=== PATIENT | female | born 1965 | race Caucasian/White ===

== ENCOUNTER 2018-09-28 22:14 | Emergency (ER) | payer MEDICARE ==
[~2018-09-28] VITALS: Ht 167.6 cm; Wt 86.2 kg
[2018-09-28] MEDS ORDERED: TEGRETOL XR100 MG PO (22:31)
[2018-09-28] MEDS ORDERED: LAMICTAL150 MG PO ×2 (22:31→23:23)
[2018-09-28] MEDS ORDERED: ATIVAN1 MG PO (22:32)
[2018-09-28] MEDS ORDERED: LANTUS100 UNITS/ SUB-Q (22:36)
[2018-09-28] MEDS ORDERED: TOPROL XL25 MG PO (22:38)
[2018-09-28] MEDS ORDERED: GLUCOPHAGE500 MG PO (22:39)
[2018-09-28] MEDS ORDERED: TEGRETOL200 MG PO (23:18)
[2018-09-28] MEDS ORDERED: OXCARBAZEPINE150 MG PO ×2 (23:20→23:23)
== END 2018-09-28 23:48 | disposition home or self-care (01) ==
LOC: ED 22:14
DX: G40.909 Epilepsy, unspecified, not intractable, without status epilepticus (principal); E11.9 Type 2 diabetes mellitus without complications; Z87.891 Personal history of nicotine dependence; Z90.710 Acquired absence of both cervix and uterus; Z88.2 Allergy status to sulfonamides; Z79.899 Other long term (current) drug therapy; Z79.4 Long term (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 of insulin
CPT/HCPCS: 99283

== ENCOUNTER 2020-08-07 10:34 | Emergency (ER) | payer MEDICARE ==
[~2020-08-07] VITALS: Ht 167.6 cm; Wt 90.7 kg
[~2020-08-07 10:34] MED LIST: ATIVAN1 MG PO; GLUCOPHAGE500 MG PO; LAMICTAL150 MG PO; LANTUS100 UNITS/ SUB-Q; OXCARBAZEPINE150 MG PO; TEGRETOL XR100 MG PO; TEGRETOL200 MG PO; TOPROL XL25 MG PO
--- OUTSIDE RECORDS SUMMARY | 2020-08-07 10:36 | XMS ---
PreManage Notification: SELVIN YAO Security Hammer Repairer Events No recent Security Events currently on file CRITERIA MET - [facility] CARE PROVIDERS NERI ZURITA Physician .Net Programmer: Medical 11/28/2015-Current PHONE: Unknown ALEX HOWE Physician .Net Programmer: Medical [facility]ONE: [phone] Elvira has no Care Guidelines for this patient. E.D. VISIT COUNT (12 MO.) 1 [place]IRAN [place] TOTAL 1 NOTE: Visits indicate total known visits. ED/UCC VISIT TRACKING (12 MO.) 08/07/2020 10:35 [place] [place] TYPE: Emergency COMPLAINT: - CAT BITE INPATIENT VISIT TRACKING (12 MO.) No inpatient visits to display in this time frame [email or web address]
[2020-08-07] MEDS ORDERED: METOPROLOL TAR100 MG PO (11:15)
[2020-08-07] MEDS ORDERED: FARXIGA5 MG PO (11:16)
[2020-08-07] MEDS ORDERED: LAMOTRIGINE300 MG PO (11:17)
[2020-08-07] MEDS ORDERED: CLOPIDOGREL75 MG PO (11:18)
[2020-08-07] MEDS ORDERED: METFORMIN HCL1000 MG PO (11:18)
[2020-08-07] MEDS ORDERED: ATORVASTATIN CA80 MG PO (11:19)
[2020-08-07] MEDS ORDERED: CLOBAZAM20 MG PO (11:19)
[2020-08-07] MEDS ORDERED: TRULICITY1.5 MG/0.5 SUB-Q (11:20)
[2020-08-07] MEDS ORDERED: VITAMIN D31250 MC1 PO (11:20)
[2020-08-07] MEDS ORDERED: CEFDINIR300 MG PO (11:32)
[2020-08-07] MEDS ORDERED: FLAGYL500 MG PO (11:32)
== END 2020-08-07 11:45 | disposition home or self-care (01) ==
LOC: ED 10:34
DX: S61.552A Open bite of left wrist, initial encounter (principal); L02.512 Cutaneous abscess of left hand; W55.01XA Bitten by cat, initial encounter; G40.909 Epilepsy, unspecified, not intractable, without status epilepticus; E11.9 Type 2 diabetes mellitus without complications; Z87.891 Personal history of nicotine dependence; Z88.2 Allergy status to sulfonamides; Z79.899 Other long term (current) drug therapy; Z79.4 Long term (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 of insulin
CPT/HCPCS: 10060; 99283-25

== ENCOUNTER 2020-09-21 00:13 | Emergency (ER) | payer MEDICARE ==
[~2020-09-21] VITALS: Ht 167.6 cm; Wt 86.2 kg
[~2020-09-21 00:13] MED LIST changes: +ATORVASTATIN CA80 MG PO; +CEFDINIR300 MG PO; +CLOBAZAM20 MG PO; +CLOPIDOGREL75 MG PO; +FARXIGA5 MG PO; +FLAGYL500 MG PO; +LAMOTRIGINE300 MG PO; +METFORMIN HCL1000 MG PO; +METOPROLOL TAR100 MG PO; +TRULICITY1.5 MG/0.5 SUB-Q; +VITAMIN D31250 MC1 PO
--- OUTSIDE RECORDS SUMMARY | 2020-09-21 00:16 | XMS ---
PreManage Notification: SELVIN YAO Security Cold Working Supervisor Events No recent Security Events currently on file CRITERIA MET - [facility] CARE PROVIDERS NERI ZURITA Physician Compensation Supervisor: Medical 11/28/2015-Current PHONE: Unknown ALEX HOWE Physician Compensation Supervisor: Medical Current PHONE: [facility] PHONE: [phone] Elvira has no Care Guidelines for this patient. E.D. VISIT COUNT (12 MO.) 2 KIRAN [place] TOTAL 2 NOTE: Visits indicate total known visits. ED/UCC VISIT TRACKING (12 MO.) 09/21/2020 00:14 [place] TYPE: Emergency COMPLAINT: - SEIZURE 08/07/2020 10:35 [place] TYPE: Emergency COMPLAINT: - CAT BITE DIAGNOSES: - Epilepsy, unspecified, not intractable, without status epilepticus - Other middleware developer (current) drug therapy - Allergy status to sulfonamides - Open bite of left wrist, initial encounter - Cutaneous abscess of left hand - Open bite of left hand, initial encounter - Type 2 diabetes mellitus without complications - USP (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 of insulin - Personal history of nicotine dependence - Bitten by cat, initial encounter - Open bite of left wrist, initial encounter INPATIENT VISIT TRACKING (12 MO.) No inpatient visits to display in this time frame [id number]
[2020-09-21] MEDS ORDERED: LAMICTAL200 MG PO (00:59)
== END 2020-09-21 02:10 | disposition home or self-care (01) ==
LOC: ED 00:13
DX: G40.909 Epilepsy, unspecified, not intractable, without status epilepticus (principal); E11.9 Type 2 diabetes mellitus without complications; Z87.891 Personal history of nicotine dependence; Z88.2 Allergy status to sulfonamides; Z91.040 Latex allergy status; Z79.4 Long term (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 of insulin; Z79.899 Other long term (current) drug therapy
CPT/HCPCS: 80053; 80156; 85025; 85610; 85730; 99284

== ENCOUNTER 2020-09-21 18:09 | Emergency (ER) | payer MEDICARE ==
[~2020-09-21] VITALS: Ht 167.6 cm; Wt 86.2 kg
[~2020-09-21 18:09] MED LIST changes: +LAMICTAL200 MG PO
--- OUTSIDE RECORDS SUMMARY | 2020-09-21 18:12 | XMS ---
PreManage Notification: SELVIN YAO Security Shower Room Attendant Events No recent Security Events currently on file CRITERIA MET - [facility] - [facility] - 2 Visits in 30 Days CARE PROVIDERS NERI ZURITA Physician Odd Jobs Day Worker: Medical 11/28/2015-Current PHONE: Unknown ALEX HOWE Physician Odd Jobs Day Worker: Medical Current PHONE: Unknown JUAN MOORE Psychiatry \T\ Neurology: Neurology 09/21/2020-Current PHONE: [phone] NICK [facility] Current PHONE: [phone] Elvira has no Care Guidelines for this patient. Estela VISIT COUNT (12 MO.) 3 KIRAN [place] TOTAL 3 NOTE: Visits indicate total known visits. ED/UCC VISIT TRACKING (12 MO.) 09/21/2020 18:09 [place] [place] TYPE: Emergency COMPLAINT: - SEIZURE 09/21/2020 00:14 [place] [place] TYPE: Emergency COMPLAINT: - SEIZURE 08/07/2020 10:35 [place] TYPE: Emergency COMPLAINT: - CAT BITE DIAGNOSES: - Epilepsy, unspecified, not intractable, without status epilepticus - Other rn angiography (current) drug therapy - Allergy status to sulfonamides - Open bite of left wrist, initial encounter - Cutaneous abscess of left hand - Open bite of left hand, initial encounter - Type 2 diabetes mellitus without complications - mail censor (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 of insulin - Personal history of nicotine dependence - Bitten by cat, initial encounter - Open bite of left wrist, initial encounter INPATIENT VISIT TRACKING (12 MO.) No inpatient visits to display in this time frame [id number]
== END 2020-09-21 22:10 | disposition home or self-care (01) ==
LOC: ED 18:09
DX: G40.909 Epilepsy, unspecified, not intractable, without status epilepticus (principal); E11.9 Type 2 diabetes mellitus without complications; Z88.2 Allergy status to sulfonamides; Z91.040 Latex allergy status; Z79.899 Other long term (current) drug therapy; Z79.4 Long term (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 of insulin
CPT/HCPCS: 70450; 80053; 85025; 99284-25

== ENCOUNTER 2020-09-28 19:25 | Emergency (ER) | payer MEDICARE ==
[~2020-09-28] VITALS: Ht 167.6 cm; Wt 86.2 kg
--- OUTSIDE RECORDS SUMMARY | 2020-09-28 19:28 | XMS ---
PreManage Notification: SELVIN YAO Security Wine Cellar Worker Events No recent Security Events currently on file CRITERIA MET - [facility] - [facility] - 2 Visits in 30 Days CARE PROVIDERS NERI ZURITA Physician Manager Market: Medical 11/28/2015-Current PHONE: Unknown ALEX HWOE Physician Manager Market: Medical Current PHONE: Unknown JUAN MOORE Psychiatry \T\ Neurology: Neurology 09/21/2020-Current PHONE: [phone] NICK [facility] Current PHONE: [phone] Elvira has no Care Guidelines for this patient. Care History Medical/Surgical 09/25/2020 [facility] - [facility] CALLED PATIENT- LEFT A VOICEMAIL- PATIENT DOES NOT HAVE A PCP IN THE AREA. Estela VISIT COUNT (12 MO.) 4 [facility] NOTE: Visits indicate total known visits. ED/UCC VISIT TRACKING (12 MO.) 09/28/2020 19:26 [facility] [place] [facility] Emergency COMPLAINT: - SEIZURE 09/21/2020 18:09 [facility] [address] [facility] [place] TYPE: Emergency COMPLAINT: - SEIZURE DIAGNOSES: - Epilepsy, unspecified, not intractable, without status epilepticus - Allergy status to sulfonamides - long-term (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 of insulin - Type 2 diabetes mellitus without complications - Other ultrasonic hand solderer (current) drug therapy - Latex allergy status 09/21/2020 00:14 [facility] [place] TYPE: Emergency COMPLAINT: - SEIZURE DIAGNOSES: - Personal history of nicotine dependence - Latex allergy status - Other ultrasonic hand solderer (current) drug therapy - Type 2 diabetes mellitus without complications - long-term (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 of insulin - Allergy status to sulfonamides - Epilepsy, unspecified, not intractable, without status epilepticus 08/07/2020 10:35 [facility] [address] [place] TYPE: Emergency COMPLAINT: - CAT BITE DIAGNOSES: - Epilepsy, unspecified, not intractable, without status epilepticus - Other care home (current) drug therapy - Allergy status to sulfonamides - Open bite of left wrist, initial encounter - Cutaneous abscess of left hand - Open bite of left hand, initial encounter - Type 2 diabetes mellitus without complications - long-term (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 of insulin - Personal history of nicotine dependence - Bitten by cat, initial encounter - Open bite of left wrist, initial encounter INPATIENT VISIT TRACKING (12 MO.) No inpatient visits to display in this time frame [id number]
[2020-09-28] MEDS ORDERED: METFORMIN HCL1000 M1 PO (21:33)
== END 2020-09-28 23:20 | disposition home or self-care (01) ==
LOC: ED 19:25
DX: R56.9 Unspecified convulsions (principal); E11.9 Type 2 diabetes mellitus without complications; Z79.4 Long term (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 of insulin; Z88.2 Allergy status to sulfonamides; Z91.040 Latex allergy status; Z79.899 Other long term (current) drug therapy
CPT/HCPCS: 82542; 99284

== ENCOUNTER 2020-12-04 18:22 | Emergency (ER) | payer MEDICARE ==
[~2020-12-04] VITALS: Ht 167.6 cm; Wt 86.2 kg
[~2020-12-04 18:22] MED LIST changes: +CLOBAZAM10 MG PO; -CLOBAZAM20 MG PO; +METFORMIN HCL1000 M1 PO
--- OUTSIDE RECORDS SUMMARY | 2020-12-04 18:24 | XMS ---
PreManage Notification: SELVIN YAO Security Case Maker Events No recent Security Events currently on file CRITERIA MET - 6 ED Visits in 6 Months - [facility] - [facility] - 2 Visits in 30 Days CARE PROVIDERS NERI ZURITA Physician Drilling Engineer: Medical 11/28/2015-Current PHONE: Unknown ALEX HOWE Physician Drilling Engineer: Medical Current PHONE: Unknown JUAN MOORE Psychiatry \T\ Neurology: Neurology 09/21/2020-Current PHONE: [phone] NICK [facility] Current PHONE: [phone] Elvira has no Care Guidelines for this patient. Care History Medical/Surgical 09/25/2020 [facility] - [facility] CALLED PATIENT- LEFT A VOICEMAIL- PATIENT DOES NOT HAVE A PCP IN THE AREA. ELuis VISIT COUNT (12 MO.) 1 [facility] Nanette Juarez 5 [facility] TOTAL 6 NOTE: Visits indicate total known visits. ED/UCC VISIT TRACKING (12 MO.) 12/04/2020 18:22 [place] TYPE: Emergency COMPLAINT: - SEIZURE 11/20/2020 14:33 [facility] [place]: Emergency DIAGNOSES: - Leg Injury - Contusion of left thigh, initial encounter - Unspecified injury of head, initial encounter - Struck by horse, initial encounter - Pain in left leg - Cervicalgia - Head Injury Without Loc 09/28/2020 19:26 [place] TYPE: Emergency COMPLAINT: - SEIZURE DIAGNOSES: - Unspecified convulsions - Latex allergy status - Epilepsy, unspecified, not intractable, without status epilepticus - Allergy status to sulfonamides - technician terminal and repeater (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 of insulin - Other long term care administrator (current) drug therapy - Type 2 diabetes mellitus without complications 09/21/2020 18:[address] [facility] [address] [facility] TYPE: Emergency COMPLAINT: - SEIZURE DIAGNOSES: - Epilepsy, unspecified, not intractable, without status epilepticus - Allergy status to sulfonamides - USP (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 of insulin - Type 2 diabetes mellitus without complications - Other residential (current) drug therapy - Latex allergy status 09/21/2020 00:14 [place] [place] TYPE: Emergency COMPLAINT: - SEIZURE DIAGNOSES: - Personal history of nicotine dependence - Latex allergy status - Other residential (current) drug therapy - Type 2 diabetes mellitus without complications - USP (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 of insulin - Allergy status to sulfonamides - Epilepsy, unspecified, not intractable, without status epilepticus 08/07/2020 10:35 [place] TYPE: Emergency COMPLAINT: - CAT BITE DIAGNOSES: - Epilepsy, unspecified, not intractable, without status epilepticus - Other long term care administrator (current) drug therapy - Allergy status to sulfonamides - Open bite of left wrist, initial encounter - Cutaneous abscess of left hand - Open bite of left hand, initial encounter - Type 2 diabetes mellitus without complications - technician terminal and repeater (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 of insulin - Personal history of nicotine dependence - Bitten by cat, initial encounter - Open bite of left wrist, initial encounter INPATIENT VISIT TRACKING (12 MO.) No inpatient visits to display in this time frame [id number]
== END 2020-12-04 20:49 | disposition home or self-care (01) ==
LOC: ED 18:22
DX: G40.909 Epilepsy, unspecified, not intractable, without status epilepticus (principal); E11.9 Type 2 diabetes mellitus without complications; Z88.2 Allergy status to sulfonamides; Z91.040 Latex allergy status; Z79.899 Other long term (current) drug therapy; Z79.4 Long term (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 of insulin
CPT/HCPCS: 70450; 80053; 85025; 96374; 99284-25; J2060

== ENCOUNTER 2021-01-23 16:02 | Observation (INO) | payer MEDICARE ==
[~2021-01-23] VITALS: Ht 167.6 cm; Wt 91.7 kg
--- OUTSIDE RECORDS SUMMARY | 2021-01-23 16:04 | XMS ---
PreManage Notification: SELVIN YAO Security Trader Events No recent Security Events currently on file CRITERIA MET - [facility] - 6 ED Visits in 6 Months CARE PROVIDERS NERI ZURITA Physician Hand Dry Cleaner: Medical 11/28/2015-Current PHONE: Unknown ALEX HOWE Physician Hand Dry Cleaner: Medical Current PHONE: Unknown JUAN MOORE Psychiatry \T\ Neurology: Neurology 09/21/2020-Current PHONE: [phone] NICK [facility] Current PHONE: [phone] Elvira has no Care Guidelines for this patient. Care History Medical/Surgical 09/25/2020 [facility] - [facility] CALLED PATIENT- LEFT A VOICEMAIL- PATIENT DOES NOT HAVE A PCP IN THE AREA. Estela VISIT COUNT (12 MO.) 1 [facility] 6 [facility] TOTAL 7 NOTE: Visits indicate total known visits. ED/UCC VISIT TRACKING (12 MO.) 01/23/2021 16:02 [facility] [place] TYPE: Emergency COMPLAINT: - BLOOD SUGAR ISSUES 12/04/2020 18:22 [facility] [place] TYPE: Emergency COMPLAINT: - SEIZURE DIAGNOSES: - Allergy status to sulfonamides - Other terminal make up operator (current) drug therapy - Latex allergy status - Epilepsy, unspecified, not intractable, without status epilepticus - Type 2 diabetes mellitus without complications - termite treater helper (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 of insulin 11/20/2020 14:[address] [facility] Ann [place] TYPE: Emergency DIAGNOSES: - Leg Injury - Contusion of left thigh, initial encounter - Unspecified injury of head, initial encounter - Struck by horse, initial encounter - Pain in left leg - Cervicalgia - Head Injury Without Loc 09/28/2020 19:26 [facility] [place] TYPE: Emergency COMPLAINT: - SEIZURE DIAGNOSES: - Unspecified convulsions - Latex allergy status - Epilepsy, unspecified, not intractable, without status epilepticus - Allergy status to sulfonamides - termite treater helper (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 of insulin - Other assisted (current) drug therapy - Type 2 diabetes mellitus without complications 09/21/2020 18:09 [place] TYPE: Emergency COMPLAINT: - SEIZURE DIAGNOSES: - Epilepsy, unspecified, not intractable, without status epilepticus - Allergy status to sulfonamides - termite treater helper (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 of insulin - Type 2 diabetes mellitus without complications - Other assisted (current) drug therapy - Latex allergy status 09/21/2020 00:14 [place] TYPE: Emergency COMPLAINT: - SEIZURE DIAGNOSES: - Personal history of nicotine dependence - Latex allergy status - Other assisted (current) drug therapy - Type 2 diabetes mellitus without complications - MCFP (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 of insulin - Allergy status to sulfonamides - Epilepsy, unspecified, not intractable, without status epilepticus 08/07/2020 10:35 [place] TYPE: Emergency COMPLAINT: - CAT BITE DIAGNOSES: - Epilepsy, unspecified, not intractable, without status epilepticus - Other assisted (current) drug therapy - Allergy status to sulfonamides - Open bite of left wrist, initial encounter - Cutaneous abscess of left hand - Open bite of left hand, initial encounter - Type 2 diabetes mellitus without complications - MCFP (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 of insulin - Personal history of nicotine dependence - Bitten by cat, initial encounter - Open bite of left wrist, initial encounter INPATIENT VISIT TRACKING (12 MO.) No inpatient visits to display in this time frame [id number]
--- NOTE | 2021-01-24 01:32 | NUR ---
ADMIT PT FROM ED PER STRETCHER. ABLE TO STAND AND PIVOT MOVING FROM STRETCHER TO BED. VIDHI WELL. IV NTG INFUSING ON ADMISSION. TOP NTG APPLIED AND IV NTG DC'D AT 0115. BS 84 ON ARRIVAL TO CCU. IV OF D5LR INFUSING AND PT NOW EATING A SANDWICH. HAS NO C/O. 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
--- NOTE | 2021-01-24 02:43 | NUR ---
PT FELL ASLEEP AFTER EATING. NOTED TO HAVE SLEEP APNEA WITH SATS DEC TO LOW 80'S. PT DID AKNOWLEDGE THIS. PT AWAKENED FOR MED AND THEN STATED SHE WAS HAVING CHEST PAIN 10/14. DID USE BSC WITHOUT CHANGED IN PAIN. 02 2L APPLIED FOR SLEEP APNEA. DR PEACOCK CALLED RE CHEST PAIN.WILL INC NTG PASTE TO 2 INCHES. PT FALLS BACK TO SLEEP QUICKLY.
--- NOTE | 2021-01-24 02:56 | NUR ---
AWAKENED AND NITRO PASTE CHANGED TO 2 INCHES. BACK TO SLEEP EASILY. IS NOW ON 3L NC.
--- NOTE | 2021-01-24 05:15 | NUR ---
AWAKENS EASILY BUT FALLS BACK TO SLEEP QUICKLY. NO C/O DURING ASSESSMENT BUT PT DID NOT STAY AWAKE. SATS 88-95 ON 3L NC.
--- NOTE | 2021-01-24 06:44 | NUR ---
LAB DRAWN, PT BACK TO SLEEP.
--- NOTE | 2021-01-24 07:45 | NUR ---
this rn received report from kimberly roy. while getting report buzz roy to assist pt to restroom. pt tolerated well and did not report chest pain with movement. pt on monitor and appears to have tolerated well
--- NOTE | 2021-01-24 08:32 | NUR ---
THIS RN IN PTS ROOM TO GIVE PT HER MORNING MEDS, ASSESSMENT. PT SITTING UP IN BED AND JUST COMPLETED ECHO. PT REPORTS THAT SHE IS HAVING MINOR CHEST PAIN 2/10 AND REPORTS THAT IT IS A BIT NAGGING- PRESSURE- DULL PAIN. PT SATING AT 88-89% ON ROOM AIR DUE TO PT NOT WANTING TO WEAR O2. THIS RN TO PLACE O2 BACK ON PT, WATCH AND WAIT TO SEE IF PTS CHEST PAIN GETS BETTER. PT HAS NOTHING ELSE TO REPORT AT THIS TIME- THE REST OF ASSESSMENT WNL
[2021-01-24] MEDS ORDERED: ONFI20 MG PO (09:49)
[2021-01-24] MEDS ORDERED: ATIVAN0.5 MG PO (09:50)
[2021-01-24] MEDS ORDERED: LAMICTAL150 MG PO (09:59)
[2021-01-24] MEDS ORDERED: LAMICTAL200 MG PO (10:01)
[2021-01-24] MEDS ORDERED: ISOSORBIDE DINI30 MG PO (10:12)
[2021-01-24] MEDS ORDERED: LOW DOSE ASPIRI81 MG PO (10:13)
--- NOTE | 2021-01-24 11:00 | NUR ---
Pt lives in [place] with in a 1 story home with her spouse, she chel Baldwin. She uses a brace for her l Knee following a horse accident last year where she was life flighted to [place]. She also has a long history of seizures. She has good support from spouse and denies eeds to go home. She does state she is trying to establish care with [facility] as she currently drives to [facility]. Informed can help her with this. She would like to establish care with the [facility]ysicians clinic [facility] the hospital. I will call and attempt to get her scheduled. Pt states she is on disability and has been disabled since 1997 for her seizures. She denies financial issues. Pt plans to dc to home today as soon as she can be discharged. Pt sees Dr. Correia in [place] for cardiology and Dr. Og in [place] for her eizures.
--- NOTE | 2021-01-24 11:15 | NUR ---
GALO FAXED TO DR. CALLEJAS, DR. MOORE AND [facility] ([facility]) TO ESTABLISH CARE AT [facility].
--- NOTE | 2021-01-24 11:15 | NUR ---
Called Physicians clinic and attempted to schedule appt. School Boat Driver states they must have 3 years of records prior to reviewing this pt. GALO obtained and will fax.
--- NOTE | 2021-01-24 11:30 | NUR ---
FACESHEET, CHART NOTES AND GALO'S FAXED TO [facility].
--- NOTE | 2021-01-24 14:08 | NUR ---
CONNECTED WITH PT CHERELLE SHANKAR WAS TAKING WITH TO DC. GAVE ENCOURAGEMENT AND BLESSING, PT ACKNOWLEDGED.
--- NOTE | 2021-01-24 16:00 | EKG ---
[facility] [address] [place], [place] [address] Signed Normal sinus rhythm Normal ECG When compared with ECG of 23-JAN-2021 16:21, (Unconfirmed) No significant change was found Confirmed by OBINNA PEACOCK MD ([id number]) on 01/24/2021 4:00:40 PM Electronically Signed By: OBINNA PEACOCK MD 01/24/21 1600 PATIENT NAME: SELVIN YAO Electrocardiogram DATE OF : 63 PHYSICIAN: OBINNA PEACOCK MD REPORT #: [id number] REPORT IS CONFIDENTIAL AND NOT TO BE RELEASED WITHOUT AUTHORIZATION
--- NOTE | 2021-01-24 16:00 | EKG ---
[facility] [address] [facility] [place], [place] [address] Signed Normal sinus rhythm Normal ECG No previous ECGs available Confirmed by OBINNA PEACOCK MD ([id number]) on 01/24/2021 4:00:33 PM Electronically Signed By: OBINNA PEACOCK MD 01/24/21 1600 PATIENT NAME: SELVIN YAO Electrocardiogram DATE OF : 63 PHYSICIAN: OBINNA PEACOCK MD REPORT #: [id number] REPORT IS CONFIDENTIAL AND NOT TO BE RELEASED WITHOUT AUTHORIZATION
== END 2021-01-24 11:05 | disposition home or self-care (01) ==
LOC: ED 16:02 → CCU 16:03
PROVIDERS: ADMIT Internal Medicine; ATTEND Internal Medicine
DX: I25.110 Atherosclerotic heart disease of native coronary artery with unstable angina pectoris (principal); E11.649 Type 2 diabetes mellitus with hypoglycemia without coma; E83.42 Hypomagnesemia; E78.5 Hyperlipidemia, unspecified; G40.909 Epilepsy, unspecified, not intractable, without status epilepticus; Z79.4 Long term (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 of insulin; Z88.2 Allergy status to sulfonamides; Z91.040 Latex allergy status; Z95.5 Presence of coronary angioplasty implant and graft; Z20.822 Contact with and (suspected) exposure to COVID-19
CPT/HCPCS: 71045; 80053; 83735; 84484; 85025; 93005; 93010; 93306; 94762; 96365; 96366; 96367; 99285-25; C9803; G0378; J3475; J7121; U0003

== ENCOUNTER 2021-10-11 12:09 | Emergency (ER) | payer MEDICARE ==
[~2021-10-11] VITALS: Ht 167.6 cm; Wt 83.9 kg
[~2021-10-11 12:09] MED LIST changes: +ATIVAN0.5 MG PO; +ISOSORBIDE DINI30 MG PO; +LOW DOSE ASPIRI81 MG PO; +ONFI20 MG PO
[2021-12-04] MEDS ORDERED: COZAAR25 MG PO (18:44)
[2021-12-04] MEDS ORDERED: CYCLOBENZAPRINE10 MG PO (22:17)
== END 2021-10-11 17:49 | disposition home or self-care (01) ==
LOC: ED 12:09
DX: G40.909 Epilepsy, unspecified, not intractable, without status epilepticus (principal); M54.50 Low back pain, unspecified; E11.9 Type 2 diabetes mellitus without complications; Z88.2 Allergy status to sulfonamides; Z91.040 Latex allergy status; Z79.899 Other long term (current) drug therapy; Z79.82 Long term (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 of aspirin; Z79.4 Long term (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 of insulin; Z79.84 Long term (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 of oral hypoglycemic drugs
CPT/HCPCS: 36415; 72131; 80053; 81001; 85025; 96374; 99284-25

== ENCOUNTER → 2021-12-11 | Emergency (ER) | payer MEDICARE ==
[~2021-12-11] VITALS: Ht 167.6 cm; Wt 94.3 kg
[~2021-12-11] MED LIST changes: +COZAAR25 MG PO; +CYCLOBENZAPRINE10 MG PO
--- OUTSIDE RECORDS SUMMARY | 2021-12-11 13:42 | XMS ---
PreManage Notification: SELVIN YAO Security Microfilm Machine Operator Events No recent Security Events currently on file CRITERIA MET - [facility] - 2 Visits in 30 Days - PDMP CARE PROVIDERS ALEX HOWE Physician Laborer Gold Leaf: Medical Current PHONE: Unknown JUAN MOORE Psychiatry \T\ Neurology: Neurology 09/21/2020-Current PHONE: Unknown MARTINA JEROME Physician Laborer Gold Leaf Current PHONE: [phone] NICK [facility] Current PHONE: [phone] Elvira has no Care Guidelines for this patient. Care History Medical/Surgical 09/25/2020 [facility] - [facility] CALLED PATIENT- LEFT A VOICEMAIL- PATIENT DOES NOT HAVE A PCP IN THE AREA. Estela [facility] (12 MO.) [facility] NOTE: Visits indicate total known visits. ED/UCC VISIT TRACKING (12 MO.) 12/11/2021 13:40 [facility] [place] TYPE: Emergency COMPLAINT: - SEIZURE 12/04/2021 18:28 [place] TYPE: Emergency COMPLAINT: - CHEST PAIN DIAGNOSES: - Presence of coronary angioplasty implant and graft - Essential (primary) hypertension - Other chest pain - Allergy status to sulfonamides - Type 2 diabetes mellitus without complications - Other shelter (current) drug therapy - M[facility] (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 of insulin - Epilepsy, unspecified, not intractable, without status epilepticus - Latex allergy status - Chest pain, unspecified 10/11/2021 12:09 [place] TYPE: Emergency COMPLAINT: - BACK PAIN DIAGNOSES: - bed bug exterminator (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 of aspirin - Type 2 diabetes mellitus without complications - Epilepsy, unspecified, not intractable, without status epilepticus - Unspecified convulsions - MCC (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 of insulin - bed bug exterminator (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 of oral hypoglycemic drugs - Other shelter (current) drug therapy - Allergy status to sulfonamides - Low back pain, unspecified - Latex allergy status 01/23/2021 16:02 [place] TYPE: Emergency COMPLAINT: - BLOOD SUGAR ISSUES INPATIENT VISIT TRACKING (12 MO.) 08/20/2021 08:39 [facility] Ann [place] TYPE: Surgical Services DIAGNOSES: - Spinal stenosis, lumbar region with neurogenic claudication 01/23/2021 16:03 KIRAN [place] TYPE: Observation COMPLAINT: - ANGINA DIAGNOSES: - Latex allergy status - Hypomagnesemia - Epilepsy, unspecified, not intractable, without status epilepticus - bed bug exterminator (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 of insulin - Allergy status to sulfonamides - Presence of coronary angioplasty implant and graft - Type 2 diabetes mellitus with hypoglycemia without coma - 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
== END ==
LOC: ED 13:39
DX: G40.909 Epilepsy, unspecified, not intractable, without status epilepticus (principal); E83.42 Hypomagnesemia; R07.9 Chest pain, unspecified; E11.9 Type 2 diabetes mellitus without complications; I10 Essential (primary) hypertension; Z88.2 Allergy status to sulfonamides; Z91.040 Latex allergy status; Z79.82 Long term (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 of aspirin; Z79.899 Other long term (current) drug therapy; Z79.4 Long term (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 of insulin; Z79.84 Long term (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 of oral hypoglycemic drugs
CPT/HCPCS: 80053; 83735; 84484; 85025; 96365; 96375; 99284-25; J2060; J3475

== ENCOUNTER 2022-03-25 19:13 | Emergency (ER) | payer MEDICARE ==
[~2022-03-25] VITALS: Ht 167.6 cm; Wt 93.9 kg
--- OUTSIDE RECORDS SUMMARY | 2022-03-25 19:16 | XMS ---
PreManage Notification: SELVIN YAO Security Test Lead Application Testing Events No recent Security Events currently on file CRITERIA MET - [facility] CARE PROVIDERS ALEX HOWE Physician Forest Science Professor: Medical Current PHONE: Unknown JUAN MOORE Psychiatry \T\ Neurology: Neurology 09/21/2020-Current [facility]: [phone] Elvira has no Care Guidelines for this patient. Care History Medical/Surgical 09/25/2020 [facility] - [facility] CALLED PATIENT- LEFT A VOICEMAIL- PATIENT DOES NOT HAVE A PCP IN THE AREA. E.D. VISIT COUNT (12 MO.) [address] [facility] TOTAL 4 NOTE: Visits indicate total known visits. ED/UCC VISIT TRACKING (12 MO.) 03/25/2022 19:13 [place] TYPE: Emergency COMPLAINT: - CHEST PAIN 12/11/2021 13:40 [place] TYPE: Emergency COMPLAINT: - SEIZURE DIAGNOSES: - jail (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 of aspirin - Type 2 diabetes mellitus without complications - Other halfway (current) drug therapy - jail (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 of oral hypoglycemic drugs - jail (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 of insulin - Hypomagnesemia - Chest pain, unspecified - Epilepsy, unspecified, not intractable, without status epilepticus - Latex allergy status - Unspecified convulsions - Essential (primary) hypertension - Allergy status to sulfonamides 12/04/2021 18:28 [place] TYPE: Emergency COMPLAINT: - CHEST PAIN DIAGNOSES: - petroleum terminal plant operator (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 of insulin - Type 2 diabetes mellitus without complications - Other chest pain - Chest pain, unspecified - Presence of coronary angioplasty implant and graft - Epilepsy, unspecified, not intractable, without status epilepticus - Other halfway (current) drug therapy - Allergy status to sulfonamides - Essential (primary) hypertension - Latex allergy status 10/11/2021 12:09 [place] TYPE: Emergency COMPLAINT: - BACK PAIN DIAGNOSES: - Other rn long term care (current) drug therapy - jail (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 of insulin - Epilepsy, unspecified, not intractable, without status epilepticus - Latex allergy status - petroleum terminal plant operator (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 of aspirin - Allergy status to sulfonamides - jail (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 of oral hypoglycemic drugs - Unspecified convulsions - Type 2 diabetes mellitus without complications - Low back pain, unspecified INPATIENT VISIT TRACKING (12 MO.) 08/20/2021 08:39 [facility] [place] TYPE: Surgical Services DIAGNOSES: - Spinal stenosis, lumbar region with neurogenic claudication [email or web address]
--- NOTE | 2022-03-28 19:15 | EKG ---
[facility] [address] [place] [address] Signed Sinus tachycardia Otherwise normal ECG When compared with ECG of 11-DEC-2021 13:59, No significant change was found Confirmed by Jake Romero MD () on 03/28/2022 7:15:26 PM Electronically Signed By: JAKE ROMERO MD 03/28/221914 PATIENT NAME: SELVIN YAO Electrocardiogram DATE OF : 63 PHYSICIAN: JAKE ROMERO MD REPORT #: [id number] REPORT IS CONFIDENTIAL AND NOT TO BE RELEASED WITHOUT AUTHORIZATION
--- NOTE | 2022-03-28 19:17 | EKG ---
[facility] [address] [place] [address] Signed Normal sinus rhythm Normal ECG When compared with ECG of 25-MAR-2022 19:10, (Unconfirmed) No significant change was found Confirmed by Jake Romero MD () on 03/28/2022 7:16:44 PM Electronically Signed By: JAKE ROMERO MD 03/28/221916 PATIENT NAME: SELVIN YAO Electrocardiogram DATE OF : 63 PHYSICIAN: JAKE ROMERO MD REPORT #: [id number] REPORT IS CONFIDENTIAL AND NOT TO BE RELEASED WITHOUT AUTHORIZATION
== END 2022-03-26 04:29 | disposition left against medical advice (07) ==
LOC: ED 19:13
DX: I21.4 Non-ST elevation (NSTEMI) myocardial infarction (principal); I20.0 Unstable angina; G40.909 Epilepsy, unspecified, not intractable, without status epilepticus; E11.9 Type 2 diabetes mellitus without complications; I10 Essential (primary) hypertension; Z88.2 Allergy status to sulfonamides; Z91.040 Latex allergy status; Z79.899 Other long term (current) drug therapy; Z79.4 Long term (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 of insulin; Z79.82 Long term (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 of aspirin; Z79.84 Long term (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 of oral hypoglycemic drugs
CPT/HCPCS: 36415; 71045; 80053; 83880; 84484; 85025; 85379; 85610; 85730; 87502; 93005; 93010; 96361; 96365; 96366; 96368; 96375; 99285-25; J1170; J1644; J1885; J2270; J7121; U0003

== ENCOUNTER 2022-04-08 16:52 | Emergency (ER) | payer MEDICARE ==
[~2022-04-08] VITALS: Ht 167.6 cm; Wt 93.9 kg
--- OUTSIDE RECORDS SUMMARY | 2022-04-08 16:56 | XMS ---
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 Care History Medical/Surgical 09/25/2020 [facility] - [facility] CALLED PATIENT- LEFT A VOICEMAIL- PATIENT DOES NOT HAVE A PCP IN THE AREA. Estela VISIT COUNT (12 MO.) 1 [facility] Ann 5 KIRAN KrishnamurthyAdina TOTAL 6 NOTE: Visits indicate total known visits. ED/UCC VISIT TRACKING (12 MO.) 04/08/2022 16:[address] [facility] ZavalaAdina [place] TYPE: Emergency COMPLAINT: - FALL/BACK PAIN [facility] DIAGNOSES: - Chest pain, unspecified - CP - Chest Pain 03/25/2022 19:13 [place] TYPE: Emergency COMPLAINT: - CHEST PAIN DIAGNOSES: - group home (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 of aspirin - group home (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 of insulin - Latex allergy status - Non-ST elevation (NSTEMI) myocardial infarction - Epilepsy, unspecified, not intractable, without status epilepticus - Essential (primary) hypertension - Allergy status to sulfonamides - moth exterminator (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 of oral hypoglycemic drugs - Unstable angina - Type 2 diabetes mellitus without complications - Chest pain, unspecified - Contact with and (suspected) exposure to COVID-19 - Other shelter (current) drug therapy 12/11/2021 13:40 [place] TYPE: Emergency COMPLAINT: - SEIZURE DIAGNOSES: - group home (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 of insulin - Hypomagnesemia - Chest pain, unspecified - Epilepsy, unspecified, not intractable, without status epilepticus - Latex allergy status - Unspecified convulsions - Essential (primary) hypertension - Allergy status to sulfonamides - group home (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 of aspirin - Type 2 diabetes mellitus without complications - Other moth exterminator (current) drug therapy - group home (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 of oral hypoglycemic drugs 12/04/2021 18:28 [place] [place] TYPE: Emergency COMPLAINT: - CHEST PAIN DIAGNOSES: - Chest pain, unspecified - Presence of coronary angioplasty implant and graft - Epilepsy, unspecified, not intractable, without status epilepticus - Other shelter (current) drug therapy - Allergy status to sulfonamides - Essential (primary) hypertension - Latex allergy status - moth exterminator (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 of insulin - Type 2 diabetes mellitus without complications - Other chest pain 10/11/2021 12:09 KIRAN Luevano TYPE: Emergency COMPLAINT: - BACK PAIN DIAGNOSES: - Latex allergy status - group home (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 of aspirin - Allergy status to sulfonamides - moth exterminator (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 of oral hypoglycemic drugs - Unspecified convulsions - Type 2 diabetes mellitus without complications - Low back pain, unspecified - Other moth exterminator (current) drug therapy - group home (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 of insulin - Epilepsy, unspecified, not intractable, without status epilepticus INPATIENT VISIT TRACKING (12 MO.) 08/20/2021 08:39 [facility] Nanette GOODMAN TYPE: Surgical Services DIAGNOSES: - Spinal stenosis, lumbar region with neurogenic claudication [email or web address]
[2022-04-08] MEDS ORDERED: MITIGARE0.6 MG PO (21:18)
== END 2022-04-08 23:34 | disposition home or self-care (01) ==
LOC: ED 16:52
DX: S39.012A Strain of muscle, fascia and tendon of lower back, initial encounter (principal); G40.909 Epilepsy, unspecified, not intractable, without status epilepticus; W06.XXXA Fall from bed, initial encounter; E11.9 Type 2 diabetes mellitus without complications; I10 Essential (primary) hypertension; Z88.8 Allergy status to other drugs, medicaments and biological substances; Z91.030 Bee allergy status; Z91.040 Latex allergy status; Z88.2 Allergy status to sulfonamides; Z79.899 Other long term (current) drug therapy; Z79.4 Long term (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 of insulin; Z79.82 Long term (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 of aspirin
CPT/HCPCS: 72131; 73502; 96372; 99284-25; A9270; J1885; J3360

== ENCOUNTER 2022-05-25 09:17 | Emergency (ER) | payer MEDICARE ==
[~2022-05-25] VITALS: Ht 167.6 cm; Wt 93.9 kg
--- NOTE | ~2022-05-25 | EKG ---
[facility] [address] [facility] [place], [place] [address] Draft EK completed, results pending confirmation PATIENT NAME: SELVIN YAO EDUARDO Electrocardiogram DATE OF : 63 PHYSICIAN: PRELIMINARY REPORT #: [id number] REPORT IS CONFIDENTIAL AND NOT TO BE RELEASED WITHOUT AUTHORIZATION
[~2022-05-25 09:17] MED LIST changes: +MITIGARE0.6 MG PO
--- OUTSIDE RECORDS SUMMARY | 2022-05-25 09:18 | XMS ---
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 - Patient with suicidal and/or homicidal ideations eloped. - Patient eloped with IV in place. Details: PATIENT LEFT AMA CRITERIA MET - PDMP - 6 ED Visits in 6 Months CARE PROVIDERS JUAN MOORE Psychiatry \T\ Neurology: Neurology 09/21/2020-[facility] PHONE: [phone] Elvira has no Care Guidelines for this patient. Care History Medical/Surgical 09/25/2020 [facility] - [facility] CALLED PATIENT- LEFT A VOICEMAIL- PATIENT DOES NOT HAVE A PCP IN THE AREA. E.D. VISIT COUNT (12 MO.) 1 [facility] 6 KIRAN Villela TOTAL 7 NOTE: Visits indicate total known visits. ED/UCC VISIT TRACKING (12 MO.) 05/25/2022 09:17 [place]IRAN [place] TYPE: Emergency COMPLAINT: - SEIZURE 04/08/2022 16:54 [place]AN [place] TYPE: Emergency COMPLAINT: - FALL/BACK PAIN DIAGNOSES: - Latex allergy status - Essential (primary) hypertension - Epilepsy, unspecified, not intractable, without status epilepticus - Low back pain, unspecified - Allergy status to other drugs, medicaments and biological substances - Other terminal block assembler (current) drug therapy - terminal block assembler (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 of aspirin - terminal block assembler (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 of insulin - Fall from bed, initial encounter - Allergy status to sulfonamides - Strain of muscle, fascia and tendon of lower back, initial encounter - Bee allergy status - Type 2 diabetes mellitus without complications [facility]22 [facility] DIAGNOSES: - CP - Chest Pain - Chest pain, unspecified 03/25/2022 19:13 [facility] [facility] [place] TYPE: Emergency COMPLAINT: - CHEST PAIN DIAGNOSES: - terminal block assembler (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 of oral hypoglycemic drugs - Unstable angina - Type 2 diabetes mellitus without complications - Chest pain, unspecified - Contact with and (suspected) exposure to COVID-19 - Other nursing home (current) drug therapy - [facility] (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 of aspirin - terminal block assembler (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 of insulin - Latex allergy status - Non-ST elevation (NSTEMI) myocardial infarction - Epilepsy, unspecified, not intractable, without status epilepticus - Essential (primary) hypertension - Allergy status to sulfonamides 12/11/2021 13:40 [place]AN [place] TYPE: Emergency COMPLAINT: - SEIZURE DIAGNOSES: - Essential (primary) hypertension - Allergy status to sulfonamides - terminal block assembler (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 of aspirin - Type 2 diabetes mellitus without complications - Other terminal block assembler (current) drug therapy - [facility] (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 of oral hypoglycemic drugs - [facility] (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 of insulin - Hypomagnesemia - Chest pain, unspecified - Epilepsy, unspecified, not intractable, without status epilepticus - Latex allergy status - Unspecified convulsions 12/04/2021 18:28 [place] [place] TYPE: Emergency COMPLAINT: - CHEST PAIN DIAGNOSES: - Essential (primary) hypertension - Latex allergy status - terminal block assembler (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 of insulin - Type 2 diabetes mellitus without complications - Other chest pain - Chest pain, unspecified - Presence of coronary angioplasty implant and graft - Epilepsy, unspecified, not intractable, without status epilepticus - Other terminal block assembler (current) drug therapy - Allergy status to sulfonamides 10/11/2021 12:09 [place] [place] TYPE: Emergency COMPLAINT: - BACK PAIN DIAGNOSES: - Type 2 diabetes mellitus without complications - Low back pain, unspecified - Other nursing home (current) drug therapy - terminal block assembler (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 of insulin - Epilepsy, unspecified, not intractable, without status epilepticus - Latex allergy status - terminal block assembler (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 of aspirin - Allergy status to sulfonamides - [facility] (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 of oral hypoglycemic drugs - Unspecified convulsions INPATIENT VISIT TRACKING (12 MO.) 08/20/2021 08:39 [facility] Ann GOODMAN TYPE: Surgical Services DIAGNOSES: - Spinal stenosis, lumbar region with neurogenic claudication [email or web address]
[2022-05-25] MEDS ORDERED: SPIRONOLACTONE25 MG PO (09:37)
[2022-05-25] MEDS ORDERED: CARVEDILOL12.5 MG PO (09:38)
[2022-05-25] MEDS ORDERED: FIASP 100100 UNIT/1 SUB-Q (09:44)
[2022-05-25] MEDS ORDERED: LANTUS SOL100 UNIT/1 SUB-Q (09:44)
[2022-05-25] MEDS ORDERED: TRULICITY4.5 MG/0.5 SUB-Q (09:46)
--- NOTE | 2022-05-25 14:03 | EKG ---
[facility] [address] [facility] [place], [place] [address] Signed Normal sinus rhythm Normal ECG No previous ECGs available Confirmed by OBINNA PEACOCK MD ([id number]) on 05/25/2022 2:02:51 PM Electronically Signed By: OBINNA PEACOCK MD 05/25/22 1403 PATIENT NAME: ESLVIN YAO Electrocardiogram DATE OF : 63 PHYSICIAN: OBINNA PEACOCK MD REPORT #: [id number] REPORT IS CONFIDENTIAL AND NOT TO BE RELEASED WITHOUT AUTHORIZATION
== END 2022-05-25 16:35 | disposition home or self-care (01) ==
LOC: ED 09:17
DX: G40.909 Epilepsy, unspecified, not intractable, without status epilepticus (principal); R07.9 Chest pain, unspecified; E11.9 Type 2 diabetes mellitus without complications; I10 Essential (primary) hypertension; Z88.2 Allergy status to sulfonamides; Z91.040 Latex allergy status; Z91.030 Bee allergy status; Z79.82 Long term (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 of aspirin; Z79.899 Other long term (current) drug therapy; Z79.4 Long term (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 of insulin; Z79.84 Long term (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 of oral hypoglycemic drugs
CPT/HCPCS: 36415; 71045; 80053; 83735; 84484; 85025; 93005; 93010; 99285-25

== ENCOUNTER 2022-09-10 11:47 | Emergency (ER) | payer MEDICARE ==
[~2022-09-10] VITALS: Ht 167.6 cm; Wt 101.2 kg
[~2022-09-10 11:47] MED LIST changes: +CARVEDILOL12.5 MG PO; +FIASP 100100 UNIT/1 SUB-Q; +LANTUS SOL100 UNIT/1 SUB-Q; +SPIRONOLACTONE25 MG PO; +TRULICITY4.5 MG/0.5 SUB-Q
--- OUTSIDE RECORDS SUMMARY | 2022-09-10 11:50 | XMS ---
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 - Patient with suicidal and/or homicidal ideations eloped. - Patient eloped with IV in place. Details: PATIENT LEFT AMA CRITERIA MET - [facility] CARE PROVIDERS JUAN MOORE Psychiatry \T\ Neurology: Neurology 09/21/2020-[facility] PHONE: [phone] Elvira has no Care Guidelines for this patient. Care History Medical/Surgical 09/25/2020 [facility] [place] [facility] - [facility] CALLED PATIENT- LEFT A VOICEMAIL- PATIENT DOES NOT HAVE A PCP IN THE AREA. E.D. VISIT COUNT (12 MO.) 1 [facility] 7 KIRAN Villela TOTAL 8 NOTE: Visits indicate total known visits. ED/UCC VISIT TRACKING (12 MO.) 09/10/2022 11:47 KIRAN [place] TYPE: Emergency COMPLAINT: - SEIZURE 05/25/2022 09:17 [place] [place] TYPE: Emergency COMPLAINT: - SEIZURE DIAGNOSES: - Other enterprise application developer (current) drug therapy - Essential (primary) hypertension - prison (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 of aspirin - Allergy status to sulfonamides - Type 2 diabetes mellitus without complications - Latex allergy status - apartment leasing consultant (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 of insulin - Epilepsy, unspecified, not intractable, without status epilepticus - Chest pain, unspecified - prison (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 of oral hypoglycemic drugs - Bee allergy status 04/08/2022 16:54 KIRAN Luevano TYPE: Emergency COMPLAINT: - FALL/BACK PAIN DIAGNOSES: - Epilepsy, unspecified, not intractable, without status epilepticus - Low back pain, unspecified - Allergy status to other drugs, medicaments and biological substances - Other longterm (current) drug therapy - prison (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 of aspirin - apartment leasing consultant (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 of insulin - Fall from bed, initial encounter - Allergy status to sulfonamides - Strain of muscle, fascia and tendon of lower back, initial encounter - Bee allergy status - Type 2 diabetes mellitus without complications - Latex allergy status - Essential (primary) hypertension 03/26/2022 15:[address] [facility] Nanette GOODMAN TYPE: Emergency DIAGNOSES: - Chest Pain - Chest pain, unspecified - CP 03/25/2022 19:13 [place]IRAN [place] TYPE: Emergency COMPLAINT: - CHEST PAIN DIAGNOSES: - Type 2 diabetes mellitus without complications - Chest pain, unspecified - Contact with and (suspected) exposure to COVID-19 - Other enterprise application developer (current) drug therapy - apartment leasing consultant (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 of aspirin - prison (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 of insulin - Latex allergy status - Non-ST elevation (NSTEMI) myocardial infarction - Epilepsy, unspecified, not intractable, without status epilepticus - Essential (primary) hypertension - Allergy status to sulfonamides - prison (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 of oral hypoglycemic drugs - Unstable angina 12/11/2021 13:40 KIRAN [place] TYPE: Emergency COMPLAINT: - SEIZURE DIAGNOSES: - prison (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 of aspirin - Type 2 diabetes mellitus without complications - Other longterm (current) drug therapy - apartment leasing consultant (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 of oral hypoglycemic drugs - prison (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 of insulin - Hypomagnesemia - Chest pain, unspecified - Epilepsy, unspecified, not intractable, without status epilepticus - Latex allergy status - Unspecified convulsions - Essential (primary) hypertension - Allergy status to sulfonamides 12/04/2021 18:28 KIRAN [place] TYPE: Emergency COMPLAINT: - CHEST PAIN DIAGNOSES: - apartment leasing consultant (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 of insulin - Type 2 diabetes mellitus without complications - Other chest pain - Chest pain, unspecified - Presence of coronary angioplasty implant and graft - Epilepsy, unspecified, not intractable, without status epilepticus - Other enterprise application developer (current) drug therapy - Allergy status to sulfonamides - Essential (primary) hypertension - Latex allergy status 10/11/2021 12:09 KIRAN [place] TYPE: Emergency COMPLAINT: - BACK PAIN DIAGNOSES: - Other longterm (current) drug therapy - apartment leasing consultant (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 of insulin - Epilepsy, unspecified, not intractable, without status epilepticus - Latex allergy status - apartment leasing consultant (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 of aspirin - Allergy status to sulfonamides - prison (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 of oral hypoglycemic drugs - Unspecified convulsions - Type 2 diabetes mellitus without complications - Low back pain, unspecified INPATIENT VISIT TRACKING (12 MO.) No inpatient visits to display in this time frame [email or web address]
[2022-09-10] MEDS ORDERED: KETOCONAZOLE15 GM TOP (12:12)
[2022-09-10] MEDS ORDERED: FARXIGA5 MG PO (12:13)
[2022-09-10] MEDS ORDERED: METOPROLOL TAR100 MG PO (12:13)
--- NOTE | 2022-09-10 18:02 | EKG ---
[facility] [address] [facility] [place], [place] [address] Signed Sinus tachycardia Otherwise normal ECG Confirmed by Jake Romero MD () on 09/10/2022 6:01:53 PM Electronically Signed By: JAKE ROMERO MD 09/10/22 180 PATIENT NAME: SELVIN YAO Electrocardiogram DATE OF : 63 PHYSICIAN: JAKE ROMERO MD REPORT #: [id number] REPORT IS CONFIDENTIAL AND NOT TO BE RELEASED WITHOUT AUTHORIZATION
== END 2022-09-10 17:22 | disposition home or self-care (01) ==
LOC: ED 11:47
DX: G40.909 Epilepsy, unspecified, not intractable, without status epilepticus (principal); R07.9 Chest pain, unspecified; E11.9 Type 2 diabetes mellitus without complications; I10 Essential (primary) hypertension; Z88.2 Allergy status to sulfonamides; Z91.040 Latex allergy status; Z91.030 Bee allergy status; Z79.899 Other long term (current) drug therapy; Z79.82 Long term (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 of aspirin; Z79.84 Long term (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 of oral hypoglycemic drugs; Z79.4 Long term (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 of insulin
CPT/HCPCS: 36415; 80053; 84484; 85025; 93005; 93010; 99285-25

== ENCOUNTER 2022-09-19 12:26 | Emergency (ER) | payer MEDICARE ==
[~2022-09-19] VITALS: Ht 167.6 cm; Wt 101.2 kg
[~2022-09-19 12:26] MED LIST changes: +KETOCONAZOLE15 GM TOP
--- OUTSIDE RECORDS SUMMARY | 2022-09-19 12:30 | XMS ---
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 - Patient with suicidal and/or homicidal ideations eloped. - Patient eloped with IV in place. Details: PATIENT LEFT AMA CRITERIA MET - PDMP - [facility] - 2 Visits in 30 Days - 6 ED Visits in 6 Months CARE PROVIDERS JUAN MOORE Psychiatry \T\ Neurology: Neurology 09/21/2020-Current PHONE: Unknown NICK [facility] Current PHONE: [phone] Elvira has no Care Guidelines for this patient. Care History Medical/Surgical 09/25/2020 [facility] - [facility] CALLED PATIENT- LEFT A VOICEMAIL- PATIENT DOES NOT HAVE A PCP IN THE AREA. E.D. VISIT COUNT (12 MO.) 1 [facility] 8 KIRAN Martinez LucasAdina TOTAL 9 NOTE: Visits indicate total known visits. ED/UCC VISIT TRACKING (12 MO.) 09/19/2022 12:28 KIRAN [place] TYPE: Emergency COMPLAINT: - CHEST PAIN 09/10/2022 11:47 KIRAN [place] TYPE: Emergency COMPLAINT: - SEIZURE DIAGNOSES: - Bee allergy status - Chest pain, unspecified - correction (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 of oral hypoglycemic drugs - termite exterminator (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 of aspirin - Allergy status to sulfonamides - Essential (primary) hypertension - Type 2 diabetes mellitus without complications - correction (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 of insulin - Other termite exterminator (current) drug therapy - Latex allergy status - Epilepsy, unspecified, not intractable, without status epilepticus 05/25/2022 09:17 KIRAN [place] TYPE: Emergency COMPLAINT: - SEIZURE DIAGNOSES: - Other termite exterminator (current) drug therapy - Essential (primary) hypertension - termite exterminator (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 of aspirin - Allergy status to sulfonamides - Type 2 diabetes mellitus without complications - Latex allergy status - correction (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 of insulin - Epilepsy, unspecified, not intractable, without status epilepticus - Chest pain, unspecified - correction (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 of oral hypoglycemic drugs - Bee allergy status 04/08/2022 16:54 KIRAN [place] TYPE: Emergency COMPLAINT: - FALL/BACK PAIN DIAGNOSES: - Epilepsy, unspecified, not intractable, without status epilepticus - Low back pain, unspecified - Allergy status to other drugs, medicaments and biological substances - Other longterm (current) drug therapy - termite exterminator (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 of aspirin - termite exterminator (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 of insulin - Fall from bed, initial encounter - Allergy status to sulfonamides - Strain of muscle, fascia and tendon of lower back, initial encounter - Bee allergy status - Type 2 diabetes mellitus without complications - Latex allergy status - Essential (primary) hypertension [facility]22 [facility] DIAGNOSES: - Chest Pain - Chest pain, unspecified - CP 03/25/2022 19:13 KIRAN [place] TYPE: Emergency COMPLAINT: - CHEST PAIN DIAGNOSES: - Type 2 diabetes mellitus without complications - Chest pain, unspecified - Contact with and (suspected) exposure to COVID-19 - Other termite exterminator (current) drug therapy - correction (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 of aspirin - correction (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 of insulin - Latex allergy status - Non-ST elevation (NSTEMI) myocardial infarction - Epilepsy, unspecified, not intractable, without status epilepticus - Essential (primary) hypertension - Allergy status to sulfonamides - termite exterminator (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 of oral hypoglycemic drugs - Unstable angina 12/11/2021 13:40 KIRAN Luevano TYPE: Emergency COMPLAINT: - SEIZURE DIAGNOSES: - correction (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 of aspirin - Type 2 diabetes mellitus without complications - Other longterm (current) drug therapy - termite exterminator (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 of oral hypoglycemic drugs - termite exterminator (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 of insulin - Hypomagnesemia - Chest pain, unspecified - Epilepsy, unspecified, not intractable, without status epilepticus - Latex allergy status - Unspecified convulsions - Essential (primary) hypertension - Allergy status to sulfonamides 12/04/2021 18:28 KIRAN [place] TYPE: Emergency COMPLAINT: - CHEST PAIN DIAGNOSES: - termite exterminator (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 of insulin - Type 2 diabetes mellitus without complications - Other chest pain - Chest pain, unspecified - Presence of coronary angioplasty implant and graft - Epilepsy, unspecified, not intractable, without status epilepticus - Other longterm (current) drug therapy - Allergy status to sulfonamides - Essential (primary) hypertension - Latex allergy status 10/11/2021 12:09 KIRAN [place] TYPE: Emergency COMPLAINT: - BACK PAIN DIAGNOSES: - Other termite exterminator (current) drug therapy - termite exterminator (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 of insulin - Epilepsy, unspecified, not intractable, without status epilepticus - Latex allergy status - termite exterminator (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 of aspirin - Allergy status to sulfonamides - termite exterminator (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 of oral hypoglycemic drugs - Unspecified convulsions - Type 2 diabetes mellitus without complications - Low back pain, unspecified INPATIENT VISIT TRACKING (12 MO.) No inpatient visits to display in this time frame [email or web address]
[2022-09-19] MEDS ORDERED: LACOSAMIDE100 MG PO (12:32)
--- NOTE | 2022-09-20 16:15 | EKG ---
[facility] [address] [facility] [place] [address] Signed Normal sinus rhythm Normal ECG When compared with ECG of 10-SEP-2022 12:19, No significant change was found Confirmed by OBINNA PEACOCK MD ([id number]) on 09/20/2022 4:15:45 PM Electronically Signed By: OBINNA PEACOCK MD 09/20/22 1615 PATIENT NAME: SELVIN YAO Electrocardiogram DATE OF : 63 PHYSICIAN: OBINNA PEACOCK MD REPORT #: [id number] REPORT IS CONFIDENTIAL AND NOT TO BE RELEASED WITHOUT AUTHORIZATION
== END 2022-09-19 14:38 | disposition home or self-care (01) ==
LOC: ED 12:26
DX: R07.9 Chest pain, unspecified (principal); G40.909 Epilepsy, unspecified, not intractable, without status epilepticus; E11.9 Type 2 diabetes mellitus without complications; I10 Essential (primary) hypertension; Z88.8 Allergy status to other drugs, medicaments and biological substances; Z91.030 Bee allergy status; Z88.2 Allergy status to sulfonamides; Z91.040 Latex allergy status; Z79.899 Other long term (current) drug therapy; Z79.84 Long term (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 of oral hypoglycemic drugs; Z79.82 Long term (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 of aspirin; Z79.4 Long term (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 of insulin
CPT/HCPCS: 36415; 71045; 80053; 83735; 84484; 85025; 93005; 93010; 99285-25

== ENCOUNTER 2022-10-04 06:05 | Day surgery (SDC) | payer MEDICARE ==
[~2022-10-04] VITALS: Ht 167.6 cm; Wt 91.0 kg
[~2022-10-04 06:05] MED LIST changes: +LACOSAMIDE100 MG PO
[2022-10-04] MEDS ORDERED: LAMICTAL25 MG PO (06:23)
--- NOTE | 2022-10-04 08:10 | NUR ---
10/04/22 0810 Katerin Madden 0804- PT ARRIVES TO PACU NONAROUSABLE TO STIMULI WITH AN OPA IN PLACE. RESP EVEN AND UNLABORED. OXYGEN SAT 87% ON 10L VIA MASK. PT JAW THRUSTED. OXYGEN SAT IMPROVED TO THE HIGH 90'S ON 10L WITH THE JAW THRUST. 0807- ANOTHER RN SWITCHED OUT FOR JAW THRUST. THIS IS MAINTAINING A PATENT AIRWAY.
--- NOTE | 2022-10-04 09:47 | NUR ---
REJI MA INFORMED ME SHE FEEL SLIKE PT IS HAVING A SEIZURE IN BEGINNING STAGES. FELT IT BEST TO NOT DISTURB PT. WILL FOLLOW NEEDED
[2022-10-05] MEDS ORDERED: LACOSAMIDE100 MG PO (11:27)
--- NOTE | 2022-10-07 08:13 | OR ---
[facility] [address], [place] [address] Signed DATE OF OPERATION: 10/04/2022 SURGEON: Frida May MD PREOPERATIVE DIAGNOSES: 1. Maternal grandmother with colon cancer in her 60s. 2. Diarrhea. POSTOPERATIVE DIAGNOSES: 1. Minimal sigmoid diverticulosis. 2. Poor bowel prep. PROCEDURE: Colonoscopy with cold biopsies of the left colon and rectum. ESTIMATED BLOOD LOSS: None. INDICATIONS: Selvin is a 57-year-old obese diabetic female, asked to see me for her initial screening colonoscopy. She told me her maternal grandmother had colon cancer in her 60s. Today, she told the nurse she has had diarrhea for a year. She told me in the office she had no lower GI complaints. This would be her 1st colonoscopy. She also has a long history of coronary artery disease, hypertension, hyperlipidemia, sleep apnea and epilepsy. Consequently, we asked for an anesthesia provider to help us today with increased monitoring sedation with propofol. In the office, I gave her a pamphlet on colonoscopy. We had reviewed the written instructions for her bowel prep line by line. We actually asked her to use additional bowel prep. She is not able to take the Dulcolax pills. Unfortunately, she only took two bottles of the Gatorade with MiraLAX. She understands there is risk to this procedure including but not limited to gas bloating, crampy abdominal pain, bleeding, perforation requiring surgery and missed diagnosis. She had expressed understanding and wished to proceed. PROCEDURE NOTE: Selvin was taken into our endoscopy suite and placed in the left lateral decubitus position. She was given monitored anesthesia care per our nurse electronics production supervisor to include propofol. A digital rectal exam was performed and this was unremarkable. There were no external hemorrhoids. She had good sphincter tone. There were no masses. The adult colonoscope was introduced and advanced under direct visualization of the camera. Unfortunately, she had a poor bowel prep. She had areas of dark brown liquid stool with Electronically Signed By: FRIDA MAY MD 10/07/22 0813 PATIENT NAME: SELVIN YAO OPERATIVE REPORT DATE OF : 63 REPORT #: [id number] PHYSICIAN: FRIDA MAY MD PCP: OSMAR CAMPOS PA-C REPORT IS CONFIDENTIAL AND NOT TO BE RELEASED WITHOUT AUTHORIZATION [facility] [address], [place] [address] Signed heavy particulate matter in the cecum, parts of the right and left colon. Much of it was suctioned and irrigated out. At least 2/3rd of the mucosa was visualized. We had taken several pictures throughout for photodocumentation. We did see some diverticula in the sigmoid colon. They were moderate in size, few in number, and scattered about. Once in the rectum, the scope had been retroflexed and she has no additional pathology above the anal canal. After this, the gas was suctioned out and the colonoscope removed. Selvin tolerated the procedure quite well. RECOMMENDATIONS: Selvin will follow up in my office in 7 to 14 days to review her biopsy results. She needs to consider repeating the colonoscopy on a short interval with a double bowel prep. Frida May MD ALB/MODL /[id number] cc: MD Osmar Womack PA-C Copies: FRIDA MAY MD ~ Electronically Signed By: FRIDA MAY MD 10/07/22 0813 PATIENT NAME: SELVIN YAO OPERATIVE REPORT DATE OF : 63 REPORT #: [id number] PHYSICIAN: FRIDA MAY MD PCP: OSMAR CAMPOS PA-C REPORT IS CONFIDENTIAL AND NOT TO BE RELEASED WITHOUT AUTHORIZATION
--- NOTE | 2022-10-07 15:44 | PATH ---
[facility] [address] [place], [place] [address] Signed SPECIMEN(S): A DESCENDING/LEFT COLON BIOPSY SPECIMEN(S): B RECTUM SPECIMEN SOURCE: A. DESCENDING/LEFT COLON BIOPSY B. RECTUM CLINICAL HISTORY: Pertinent History / Clinical Impression: Initial screening, family history colon cancer, personal history diarrhea. Postop Diagnosis: Diverticulosis, poor bowel prep. FINAL PATHOLOGIC DIAGNOSIS: A. Descending / left colon biopsy: - Mild active colitis, negative for dysplasia B. Rectum, biopsy: - Benign colonic mucosa with slight reactive features, negative for dysplasia. COMMENT: The mild active colitis noted in the descending colon biopsy is somewhat non-specific. The differential includes bowel prep related changes, infection, medication effect, and an emerging or subacute inflammatory bowel disease among other causes. Clinical correlation is requested. JVR:neymar:[email or web address] MICROSCOPIC EXAMINATION: Histologic sections of all submitted blocks are examined by light microscopy. These findings, together with the gross examination, support the pathologic diagnosis. GROSS DESCRIPTION: A. The specimen, labeled and designated "Lapan, descending colon biopsy," is received in formalin and consists of two davis soft tissue fragments, ranging from 0.2-0.6 cm. Entirely submitted in (A1). B. The specimen, labeled and designated "Lapan, rectum biopsy," is received in formalin and consists of one davis soft tissue fragment, 0.2 cm. Entirely submitted in (B1). JS (under the direct supervision of a pathologist) The Gross Description was prepared using a voice recognition system. The report was reviewed for accuracy; however, sound-alike word errors, addition and/or PATIENT NAME: SELVIN YAO PATHOLOGY DATE OF : 63 REPORT #: [id number] PHYSICIAN: KRISTINA LONGO PCP: OSAMR CAMPOS PA-C REPORT IS CONFIDENTIAL AND NOT TO BE RELEASED WITHOUT AUTHORIZATION [facility] [address], [place] [address] Signed deletions may occur. If there is any question about this report, please contact Client Services. PERFORMING LABORATORY: The technical component was performed by [facility], [address] [place] [address] (CLIA# [id number]). Professional interpretation was performed by [facility] - [address] [address] (CLIA#: [id number]). Diagnostician: Eduardo Ramos MD Pathologist Electronically Signed 10/07/2022 Copies: ~ PATIENT NAME: SELVIN YAO PATHOLOGY DATE OF : 63 REPORT #: [id number] PHYSICIAN: KRISTINA LONGO PCP: OSMAR CAMPOS PA-C REPORT IS CONFIDENTIAL AND NOT TO BE RELEASED WITHOUT AUTHORIZATION
== END 2022-10-04 09:14 | disposition home or self-care (01) ==
LOC: OPS 06:05 → DS 06:05 → OPS 07:30 → DS 08:15 → OPS 09:14
PROVIDERS: ATTEND Colon & Rectal Surgery
PROC: 0DBP8ZX Excision of Rectum, Via Natural or Artificial Opening Endoscopic, Diagnostic (ICD-10-PCS; 2022-10-04)
PROC: 0DBM8ZX Excision of Descending Colon, Via Natural or Artificial Opening Endoscopic, Diagnostic (ICD-10-PCS; principal; 2022-10-04 07:30)
DX: K52.9 Noninfective gastroenteritis and colitis, unspecified (principal); I25.10 Atherosclerotic heart disease of native coronary artery without angina pectoris; I10 Essential (primary) hypertension; E78.5 Hyperlipidemia, unspecified; G47.33 Obstructive sleep apnea (adult) (pediatric); E11.9 Type 2 diabetes mellitus without complications; G40.909 Epilepsy, unspecified, not intractable, without status epilepticus; Z91.040 Latex allergy status; Z91.018 Allergy to other foods; Z88.2 Allergy status to sulfonamides; Z88.8 Allergy status to other drugs, medicaments and biological substances; Z79.84 Long term (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 of oral hypoglycemic drugs; Z79.2 Long term (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 of antibiotics; E66.9 Obesity, unspecified; Z68.34 Body mass index [BMI] 34.0-34.9, adult
CPT/HCPCS: J2250; J2704; J7121

== ENCOUNTER 2022-10-05 10:59 | Emergency (ER) | payer MEDICARE, OTHER ==
[~2022-10-05] VITALS: Ht 167.6 cm; Wt 88.0 kg
[~2022-10-05 10:59] MED LIST changes: +LAMICTAL25 MG PO
--- OUTSIDE RECORDS SUMMARY | 2022-10-05 11:02 | XMS ---
PreManage Notification: SELVIN YAO Security Director Pharmaceutical Events 1 event(s) in the past 18 months Most recent security events: Elopement at [facility] 03/25/2022 19:13 - Patient eloped before treatment completed. - Patient with suicidal and/or homicidal ideations eloped. - Patient eloped with IV in place. Details: PATIENT LEFT AMA CRITERIA MET - PDM - [facility] - 2 Visits in 30 Days CARE PROVIDERS JUAN MOORE Psychiatry \T\ Neurology: Neurology 09/21/2020-Current PHONE: Unknown NICK [facility] Current PHONE: [phone] Elvira has no Care Guidelines for this patient. Care History Medical/Surgical 09/25/2020 [facility] - CHW CALLED PATIENT- LEFT A VOICEMAIL- PATIENT DOES NOT HAVE A PCP IN THE AREA. E.D. VISIT COUNT (12 MO.) 1 Darrian Mccoy M[facility] 9 KIRAN [place] TOTAL 10 NOTE: Visits indicate total known visits. ED/UCC VISIT TRACKING (12 MO.) 10/05/2022 11:00 [facility] [place] TYPE: Emergency COMPLAINT: - SEIZURE 09/19/2022 12:28 [facility] [place] TYPE: Emergency COMPLAINT: - CHEST PAIN DIAGNOSES: - nursing home (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 of aspirin - Essential (primary) hypertension - Allergy status to sulfonamides - Allergy status to other drugs, medicaments and biological substances - Bee allergy status - Other skilled nursing (current) drug therapy - Chest pain, unspecified - nursing home (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 of oral hypoglycemic drugs - Type 2 diabetes mellitus without complications - nursing home (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 of insulin - Epilepsy, unspecified, not intractable, without status epilepticus - Latex allergy status 09/10/2022 11:47 [facility] [place] TYPE: Emergency COMPLAINT: - SEIZURE DIAGNOSES: - Bee allergy status - Chest pain, unspecified - nursing home (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 of oral hypoglycemic drugs - termite helper (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 of aspirin - Allergy status to sulfonamides - Essential (primary) hypertension - Type 2 diabetes mellitus without complications - termite helper (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 of insulin - Other terminal computer operator (current) drug therapy - Latex allergy status - Epilepsy, unspecified, not intractable, without status epilepticus 05/25/2022 09:17 [facility] [place] TYPE: Emergency COMPLAINT: - SEIZURE DIAGNOSES: - Other skilled nursing (current) drug therapy - Essential (primary) hypertension - nursing home (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 of aspirin - Allergy status to sulfonamides - Type 2 diabetes mellitus without complications - Latex allergy status - nursing home (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 of insulin - Epilepsy, unspecified, not intractable, without status epilepticus - Chest pain, unspecified - termite helper (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 of oral hypoglycemic drugs - Bee allergy status 04/08/2022 16:54 [facility] [place] TYPE: Emergency COMPLAINT: - FALL/BACK PAIN DIAGNOSES: - Epilepsy, unspecified, not intractable, without status epilepticus - Low back pain, unspecified - Allergy status to other drugs, medicaments and biological substances - Other terminal computer operator (current) drug therapy - termite helper (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 of aspirin - nursing home (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 of insulin - Fall from bed, initial encounter - Allergy status to sulfonamides - Strain of muscle, fascia and tendon of lower back, initial encounter - Bee allergy status - Type 2 diabetes mellitus without complications - Latex allergy status - Essential (primary) hypertension 03/26/2022 15:16 [facility] Nanette [place] TYPE: Emergency DIAGNOSES: - Chest Pain - Chest pain, unspecified - CP 03/25/2022 19:13 [facility] [place] TYPE: Emergency COMPLAINT: - CHEST PAIN DIAGNOSES: - Type 2 diabetes mellitus without complications - Chest pain, unspecified - Contact with and (suspected) exposure to COVID-19 - Other terminal computer operator (current) drug therapy - nursing home (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 of aspirin - termite helper (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 of insulin - Latex allergy status - Non-ST elevation (NSTEMI) myocardial infarction - Epilepsy, unspecified, not intractable, without status epilepticus - Essential (primary) hypertension - Allergy status to sulfonamides - nursing home (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 of oral hypoglycemic drugs - Unstable angina 12/11/2021 13:40 [facility] [place] TYPE: Emergency COMPLAINT: - SEIZURE DIAGNOSES: - termite helper (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 of aspirin - Type 2 diabetes mellitus without complications - Other skilled nursing (current) drug therapy - nursing home (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 of oral hypoglycemic drugs - termite helper (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 of insulin - Hypomagnesemia - Chest pain, unspecified - Epilepsy, unspecified, not intractable, without status epilepticus - Latex allergy status - Unspecified convulsions - Essential (primary) hypertension - Allergy status to sulfonamides 12/04/2021 18:28 [facility] [place] TYPE: Emergency COMPLAINT: - CHEST PAIN DIAGNOSES: - nursing home (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 of insulin - Type 2 diabetes mellitus without complications - Other chest pain - Chest pain, unspecified - Presence of coronary angioplasty implant and graft - Epilepsy, unspecified, not intractable, without status epilepticus - Other terminal computer operator (current) drug therapy - Allergy status to sulfonamides - Essential (primary) hypertension - Latex allergy status 10/11/2021 12:[address] [facility] [place] TYPE: Emergency COMPLAINT: - BACK PAIN DIAGNOSES: - Other terminal computer operator (current) drug therapy - nursing home (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 of insulin - Epilepsy, unspecified, not intractable, without status epilepticus - Latex allergy status - termite helper (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 of aspirin - Allergy status to sulfonamides - termite helper (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 of oral hypoglycemic drugs - Unspecified convulsions - Type 2 diabetes mellitus without complications - Low back pain, unspecified INPATIENT VISIT TRACKING (12 MO.) No inpatient visits to display in this time frame [email or web address]
[2022-10-05] MEDS ORDERED: LACOSAMIDE100 MG PO (11:27)
== END 2022-10-05 13:54 | disposition home or self-care (01) ==
LOC: ED 10:59
DX: G40.909 Epilepsy, unspecified, not intractable, without status epilepticus (principal); S40.012A Contusion of left shoulder, initial encounter; E11.9 Type 2 diabetes mellitus without complications; I10 Essential (primary) hypertension; Z91.030 Bee allergy status; Z79.899 Other long term (current) drug therapy; Z88.8 Allergy status to other drugs, medicaments and biological substances; Z88.2 Allergy status to sulfonamides; Z91.040 Latex allergy status; Z79.82 Long term (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 of aspirin; Z79.4 Long term (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 of insulin; X58.XXXA Exposure to other specified factors, initial encounter
CPT/HCPCS: 36415; 73030; 80053; 85025; 96374; 99284-25; J2405

== ENCOUNTER 2022-11-14 20:18 | Inpatient (IN) | payer MEDICARE ==
[~2022-11-14] VITALS: Ht 167.6 cm; Wt 93.6 kg
--- OUTSIDE RECORDS SUMMARY | 2022-11-14 20:21 | XMS ---
PreManage Notification: SELVIN YAO Security Tool Radial Drill Press Set Up Operator Events 1 event(s) in the past 18 months Most recent security events: Elopement at [facility] 03/25/2022 19:13 - Patient eloped before treatment completed. - Patient with suicidal and/or homicidal ideations eloped. - Patient eloped with IV in place. Details: PATIENT LEFT AMA CRITERIA MET - 6 ED Visits in 6 Months - [facility] - 2 Visits in 30 Days CARE PROVIDERS JUAN MOORE Psychiatry \T\ Neurology: Neurology 09/21/2020-Current PHONE: Unknown NICK [facility] Current PHONE: [phone] Elvira has no Care Guidelines for this patient. Care History Medical/Surgical 09/25/2020 [facility] - [facility]W CALLED PATIENT- LEFT A VOICEMAIL- PATIENT DOES NOT HAVE A PCP IN THE AREA. E.D. VISIT COUNT (12 MO.) 1 [facility] TOTAL 11 NOTE: Visits indicate total known visits. ED/UCC VISIT TRACKING (12 MO.) 11/14/2022 20:18 [facility] [place] TYPE: Emergency COMPLAINT: - FEVER 10/22/2022 11:45 [facility] ID TYPE: Emergency DIAGNOSES: - Epilepsy, unspecified, not intractable, without status epilepticus - Tremor, unspecified - EMS - Multiple Medical Problems 10/05/2022 11:00 [facility] [place] TYPE: Emergency COMPLAINT: - SEIZURE DIAGNOSES: - Allergy status to other drugs, medicaments and biological substances - Allergy status to sulfonamides - Bee allergy status - Contusion of left shoulder, initial encounter - Epilepsy, unspecified, not intractable, without status epilepticus - Essential (primary) hypertension - Exposure to other specified factors, initial encounter - Latex allergy status - detention (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 of aspirin - buttermaker continuous churn (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 of insulin - Other usp (current) drug therapy - Type 2 diabetes mellitus without complications 09/19/2022 12:28 [facility] [place] TYPE: Emergency COMPLAINT: - CHEST PAIN DIAGNOSES: - Allergy status to other drugs, medicaments and biological substances - Allergy status to sulfonamides - Bee allergy status - Chest pain, unspecified - Epilepsy, unspecified, not intractable, without status epilepticus - Essential (primary) hypertension - Latex allergy status - detention (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 of aspirin - detention (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 of insulin - buttermaker continuous churn (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 of oral hypoglycemic drugs - Other usp (current) drug therapy - Type 2 diabetes mellitus without complications 09/10/2022 11:47 [facility] [place] TYPE: Emergency COMPLAINT: - SEIZURE DIAGNOSES: - Allergy status to sulfonamides - Bee allergy status - Chest pain, unspecified - Epilepsy, unspecified, not intractable, without status epilepticus - Essential (primary) hypertension - Latex allergy status - detention (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 of aspirin - buttermaker continuous churn (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 of insulin - buttermaker continuous churn (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 of oral hypoglycemic drugs - Other usp (current) drug therapy - Type 2 diabetes mellitus without complications 05/25/2022 09:17 [facility] [place] TYPE: Emergency COMPLAINT: - SEIZURE DIAGNOSES: - Allergy status to sulfonamides - Bee allergy status - Chest pain, unspecified - Epilepsy, unspecified, not intractable, without status epilepticus - Essential (primary) hypertension - Latex allergy status - detention (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 of aspirin - detention (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 of insulin - buttermaker continuous churn (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 of oral hypoglycemic drugs - Other superintendent marine oil terminal (current) drug therapy - Type 2 diabetes mellitus without complications 04/08/2022 16:54 [facility] [place] TYPE: Emergency COMPLAINT: - FALL/BACK PAIN DIAGNOSES: - Allergy status to other drugs, medicaments and biological substances - Allergy status to sulfonamides - Bee allergy status - Epilepsy, unspecified, not intractable, without status epilepticus - Essential (primary) hypertension - Fall from bed, initial encounter - Latex allergy status - detention (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 of aspirin - detention (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 of insulin - Low back pain, unspecified - Other usp (current) drug therapy - Strain of muscle, fascia and tendon of lower back, initial encounter - Type 2 diabetes mellitus without complications 03/26/2022 15:16 [facility] Ann [place] TYPE: Emergency DIAGNOSES: - Chest pain, unspecified - Chest Pain - CP 03/25/2022 19:13 [facility] [place] TYPE: Emergency COMPLAINT: - CHEST PAIN DIAGNOSES: - Allergy status to sulfonamides - Chest pain, unspecified - Contact with and (suspected) exposure to COVID-19 - Epilepsy, unspecified, not intractable, without status epilepticus - Essential (primary) hypertension - Latex allergy status - detention (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 of aspirin - detention (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 of insulin - buttermaker continuous churn (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 of oral hypoglycemic drugs - Non-ST elevation (NSTEMI) myocardial infarction - Other usp (current) drug therapy - Type 2 diabetes mellitus without complications - Unstable angina 12/11/2021 13:40 [facility] [place] TYPE: Emergency COMPLAINT: - SEIZURE DIAGNOSES: - Allergy status to sulfonamides - Chest pain, unspecified - Epilepsy, unspecified, not intractable, without status epilepticus - Essential (primary) hypertension - Hypomagnesemia - Latex allergy status - buttermaker continuous churn (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 of aspirin - detention (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 of insulin - buttermaker continuous churn (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 of oral hypoglycemic drugs - Other usp (current) drug therapy - Type 2 diabetes mellitus without complications - Unspecified convulsions 12/04/2021 18:28 [facility] [place] TYPE: Emergency COMPLAINT: - CHEST PAIN DIAGNOSES: - Allergy status to sulfonamides - Chest pain, unspecified - Epilepsy, unspecified, not intractable, without status epilepticus - Essential (primary) hypertension - Latex allergy status - detention (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 of insulin - Other chest pain - Other superintendent marine oil terminal (current) drug therapy - Presence of coronary angioplasty implant and graft - Type 2 diabetes mellitus without complications INPATIENT VISIT TRACKING (12 MO.) No inpatient visits to display in this time frame [email or web address]
[2022-11-14] MEDS ORDERED: HYDROCODONE-AC118 M1 PO (20:39)
[2022-11-14] MEDS ORDERED: SPIRONOLACTONE25 MG PO (20:39)
[2022-11-15] VITALS (7 sets, daily range): BP systolic 101–147; BP diastolic 61–79
--- NOTE | 2022-11-15 00:32 | NUR ---
PT TO FLOOR AT 0025, RECEIVED REPORT FROM RNLEONARDO (ED). PT A/O WEARING OXYGEN, WHICH IS NOT CHRONIC. WEARS CPAP AT HOME, BUT POST TONSILLECTOMY (NOVEMBER 13), NOT TO USE X 4 DAYS. WEARS DENTURES BUT LEFT AT HOME. LIVES AT HOME WITH . SUPERVISOR POWER REACTOR IN ROOM DOING ADMITTING PROCESS.
--- NOTE | 2022-11-15 01:35 | NUR ---
PT UP TO BATHROOM ON RA, BACK TO BED, SAYS 84. RT AWARE. PT REFUSED THE LONG ACTING INSULIN THAT WAS ORDERED DUE TO TAKING IT BEFORE SHE LEFT FOR HOSPITAL. COMPLAINS HER THROAT IS SORE, BUT NO BLEEDING. MOST CONCERNED ABOUT NOT HAVING A SEIZURE WHILE HERE. IV INFUSING PER ORDER. INDEPENDENT IN AND OUT OF BED. CALL LIGHT WITHIN REACH.
--- NOTE | 2022-11-15 03:35 | NUR ---
REPORT RECEIVED FROM NETO MENDOZA. PT RESTING IN BED WITH EYES CLOSED, RESP EVEN AND UNLABORED.
--- NOTE | 2022-11-15 05:44 | NUR ---
IN TO SEE PT, DO ASSESSMENT. PT DENIES NEEDS AT THIS TIME.
--- NOTE | 2022-11-15 06:11 | NUR ---
PT UP TO BR TO VOID AND THEN BACK TO BED, RATES PAIN 8/10 IN THROAT, PRN PAIN MEDICATION GIVEN PER EMAR.
--- NOTE | 2022-11-15 07:44 | NUR ---
Patient awake, a&ox4. Patient sitting up in bed, no distress. Patient has no needs at this time. IV fluids infusing per provider order. Call light within reach.
--- NOTE | 2022-11-15 08:22 | NUR ---
PATIENT IN CHAIR AFTER AM CARE AND USING RESTROOM. PT IS "FEELING MUCH BETTER THAN YESTERDAY", SHE STATED. PATIENT ALSO STATED SHE IS "TALKING MUCH BETTER" WELL. CALL LIGHT WITHIN REACH.
--- NOTE | 2022-11-15 08:42 | NUR ---
MEDICATION ADMINISTRATION AND NURSE LEADER ROUNDING COMPLETE
[2022-11-15] MEDS ORDERED: LAMOTRIGINE150 MG PO (08:50)
[2022-11-15] MEDS ORDERED: LAMOTRIGINE200 MG PO (08:51)
[2022-11-15] MEDS ORDERED: METFORMIN HCL1000 MG PO (09:07)
--- NOTE | 2022-11-15 09:36 | NUR ---
PATIENT IN BED AFTER MEAL. VITALS AND I/O'S COMPLETED. LEMON ICE GIVEN FOR IRRITATION W/TONSILS. PT HAS NO OTHER REQUESTS AT THIS TIME. CALL LIGHT WITHIN REACH.
--- NOTE | 2022-11-15 10:57 | NUR ---
Patient sat up in chair for breakfast, tolerated food well. Patient denies shortness of breath at rest, sp02 92% on 2L oxygen per nc. Patient denies pain at this time. Warm blanket provided to patient for comfort. No current needs, personal supplies and call light within reach.
--- NOTE | 2022-11-15 11:04 | NUR ---
pt assisted up to br sba.
--- NOTE | 2022-11-15 11:10 | NUR ---
Spoke with Bren. She states she lives in a two story home with 2 steps. She does not have issues getting in or out of the home. She does not use her upstairs. She lives with her SO Ramiro and her daughter, Winter, is moving in with them. She does not use DME< but then states she has a CPAP. 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 She plans on dc to home when she is medically cleared. She denies any financial issues or any needs. Will return home with SO on dc.
[2022-11-15] MEDS ORDERED: LOSARTAN POTASS50 MG PO (11:33)
[2022-11-15] MEDS ORDERED: VITAMIN D3250 MC1 PO (11:36)
[2022-11-15] MEDS ORDERED: NITROGLYCERIN0.4 MG SL (11:37)
[2022-11-15] MEDS ORDERED: BIOTIN10000 MC1 PO (11:37)
[2022-11-15] MEDS ORDERED: FIASP 100100 UNIT/1 SUB-Q (11:38)
--- NOTE | 2022-11-15 11:39 | NUR ---
MED REC COMPLETE
--- NOTE | 2022-11-15 11:51 | NUR ---
MED REC COMPLETE
--- NOTE | 2022-11-15 12:03 | NUR ---
Lortab 30ml of 7.5/325mg po admin for reports of 8/10 throat pain.
--- NOTE | 2022-11-15 12:58 | NUR ---
Patient sitting up in bed, no acute distress. Ice provided to patient for a reported headache. IV site patent, fluids infusing per provider order. Call light wtihin reach of patient.
--- NOTE | 2022-11-15 14:09 | NUR ---
PATIENT IN BED AFTER USING RESTROOM. VITALS AND I/O'S COMPLETED. ICE WATER AND LEMON ICE GIVEN, PT ON 2LNC. CALL LIGHT WITHIN REACH.
--- NOTE | 2022-11-15 16:12 | NUR ---
Patient ambulated in hallway with SEWER SYSTEM SUPERVISOR/RN standby assist, tolerated well. Patient remains on 2L oxygen per nc, respirations non labored-Patient 91% post walk. here to visit with patient. No current needs.
--- NOTE | 2022-11-15 17:43 | NUR ---
Admin lortab 7.5-325mg po 30ml for reports 01/13 head/ear pain.
--- NOTE | 2022-11-15 18:18 | NUR ---
Patient has a low grade temperature 99.1f per po. Patient reports and ongoing headache this evening, ice in use for comfort. Patient shivering. While at bedside with chargeback specialistKacy patient reports acute onset of sharp chest pain. REJI Woodruff remained with patient while this RN called Dr. Rasch. MATOS to obtain stat EKG at this time.
--- NOTE | 2022-11-15 18:45 | EKG ---
[facility] [address] [place] [address] Signed Sinus tachycardia Possible Inferior infarct , age undetermined Abnormal ECG When compared with ECG of 19-SEP-2022 12:30, Borderline criteria for Inferior infarct are now present ST now depressed in Inferior leads Confirmed by DEBRA KHAN MD ([id number]) on 11/15/2022 6:45:39 PM Electronically Signed By: DEBRA KHAN MD 11/15/22 1845 PATIENT NAME: SELVIN YAO Electrocardiogram DATE OF : 63 PHYSICIAN: DEBRA KHAN MD REPORT #: [id number] REPORT IS CONFIDENTIAL AND NOT TO BE RELEASED WITHOUT AUTHORIZATION
--- NOTE | 2022-11-15 18:45 | NUR ---
Patient reports she at times needs to take nitroglycerin Subl and ativan at home for chest pain. TORB from Dr. Stern to start patient's nitro and ativan per home schedule/dose. Medication order placed at this time per patient's home order. Dr. Stern has no further orders to obtain at this time.
--- NOTE | 2022-11-15 18:59 | NUR ---
Admin Nitroglycerin 0.4mg subl tab for reported chest pain.
--- NOTE | 2022-11-15 19:09 | NUR ---
Patient reports improved chest pain post nitro admin.
--- NOTE | 2022-11-15 19:10 | NUR ---
BEDSIDE REPORT RECEIVED FROM HERSON MENDOZA, PT JUST HAD LABS DRAWN, CONTINUES TO TAKE NTG SL, SKIN WARM AND DRY OXYGEN REMAINS IN PLACE, IVF AT 50ML WITH NS.
--- NOTE | 2022-11-15 19:39 | NUR ---
DR KHAN IN pt ROOM AND ASSESSING pt. pt RESTING QUIETLY IN BED, O2 IN PLACE. pt REPORTS CHEST PAIN IS IMPROVING, pt EDUCATED TO CALL CUT OUT MARKER IF ADDITIONAL PAIN MEDICAITON IS NEEDED (PRN MORPHINE), pt VERBALIZED UNDERSTANDING. PER DR KHAN, CALL MD IF CHEST PAIN WORSENS OTHERWISE NO NEED FOR REPEAT TROPONIN AT THIS TIME. WILL CONTINUE TO MONITOR FOR CHANGES. CALL LIGHT IN REACH.
--- NOTE | 2022-11-15 20:50 | NUR ---
PT RESTING IN BED, REQUEST ASSIST TO BSC, IPA TO BSC, PT VOIDED 400ML YELLOW URINE, AT BEDSID TO VISIT, PT DENIES FURTHER CHEST PAIN, RESP EVEN AND REG.
--- NOTE | 2022-11-15 21:05 | NUR ---
RT TO ROOM TO CHECK ON PT, PT WITHOUT COMPLAINTS, I/O DONE.
--- NOTE | 2022-11-15 21:08 | NUR ---
PT AWAKE AND ALERT, DENIES NEED FOR PAIN MED AT THIS TIME, VS AND AESSMENT DONE, PT CONTS ON 4L/NC, NEW BAG NS HUNG AND RATE CONTINUES AT 50ML/HR PER 18 G IN RIGHT FOREARM, 20G SL PATENT IN LEFT ARM, FLUSHES WELL, ACCUCHECK 152, RT INSULING AND SS INSULIN GIVEN PER ORDER, PT REQUESTING SNACK, BROTH AND APPLE SAUCE GIVEN PER CARDIAC RN.
--- NOTE | 2022-11-15 23:00 | NUR ---
PT RESTING WITHOUT REQUEST, SIDE RAILS CONTINUE TO BE PADDED FOR SEIZURE PRECAUTIONS.
--- NOTE | 2022-11-16 00:45 | NUR ---
RN TO ROOM TO GIVE A/B, CPOX ALARMING, SATS 86, OXYGEN FOUND TO BE OUT OF NOSE, PT AWAKEN AND REPLACED OXYGEN, O2 INCREASED TO 4.5L/NC, PT BACK TO SLEEP, REMAINS ON LEFT TILT. SATS UP TO 88%.
--- NOTE | 2022-11-16 01:48 | NUR ---
RT TO ROOM, REPORTS HE BUMP O2 TO 6L/NC FOR DECREASED SATS, SAT NOW 88%, PT AWAKEN BRIEFLY TO CHECK PLACEMENT OF NASAL CANUAL AND REPORTS SHE CAN'T TOLERATE A MASK, PLAN TO CONTINUE WITH NC AND MONITOR PRN.
--- NOTE | 2022-11-16 02:25 | NUR ---
PT ALSEEP, RESP EVEN AND REG AT 20/MIN, OX SAT 93%, OXYGEN REMAINS IN PLACE AT 6L PER NC.
--- NOTE | 2022-11-16 03:50 | NUR ---
PT REMAINS ASLEEP, SAT NOTED TO BE 84%, OXYGEN NOT IN NARES, PT AWAKEN TO PLACE BACK ON OXYGEN, PT WITHOUT COMPLAINTS, RESTING. SATS COMING UP, NOW 88%, PLAN TO MONITOR.
--- NOTE | 2022-11-16 05:55 | NUR ---
FORTUNATO MENDOZA CALLED TO ROOM, PT REPORTS SHE FEELS LIKE SHE HAD A SEIZURE DURING THE NIGHT AND UNSURE WHEN, PT DESIRES TO GO TO BSC, RN ASSISTED UP TO VOID, PT C/O OF SHAKINESS RELATED TO POSSIBLE LOW BLOOD SUGAR, ACCUCHECK DONE BY FORTUNATO MENDOZA AND NOTED TO BE 117.
--- NOTE | 2022-11-16 06:00 | NUR ---
IN TO ANSWER CALL LIGHT. PT REQUESTING TO USE BSC. PT ALSO REQUESTING TO HAVE BG CHECKED PT STATES SHE "FEELS SHAKY." TREMORS NOTED TO PTs HANDS. 1PA FROM BED TO BSC. BG CHECKED 117 NOTED TO EMAR. REJI NORIEGA IN ROOM TO ROUND ON PT AND TAKES OVER. REJI NORIEGA UPDATED ON PT. PT STATES "I FEEL LIKE I MIGHT HAVE HAD A SEIZURE LAST NIGHT, MY TONGUE HURTS LIKE IT DOES AFTER I HAVE ONE." REJI NORIEGA IN ROOM ASSISTING PT. NO OTHER NEEDS FROM THIS RN AT THIS TIME.
[2022-11-16 06:10] VITALS: BP 158/84
--- NOTE | 2022-11-16 06:10 | NUR ---
PT ASSISTED BACK TO BED, VOIDED 950ML YELLOW URINE, PT REPORTS SHE FEEL LIKE SHE HAD A SEIZURE DURING THE NIGHT BUT UNSURE WHEN, STATES SHE WOKE UP AT END OF BED AND HER TONGUE IS SORE, TONGUE VISUALIZED AND NO NOTABLE BLEEDING OR ABRASIONS NOTED, PT REQUEST ENSURE FOR LOW BLOOD SUGAR, GIVEN AFTER VS DONE, OX SAT 92% ON 6L/NC, IV REMAINS IN PLACE, OXYGEN IN PLACE WHEN RN CALLED TO ROOM, ASSESSMENT COMPLETED.
--- NOTE | 2022-11-16 06:31 | NUR ---
SEIZURE PADS REMAIN IN PLACE, PT MEDICATED FOR PAIN OF THROAT AND TONGUE PER ORDER, PT ABLE TO SWOLLOW WITH SIPS OF WATER. CALL LIGHT IN REACH.
--- NOTE | 2022-11-16 06:45 | NUR ---
CHARGE NURSE REPORTS SHE CHECK WITH CCU RN TO SEE IF PT HAD ABNORMAL EPISODE ON TELE, CCU REPORTED A 8 SEC PERIOD OF ARTIFACT AT 0404, TC TO DR KHAN, REPORT GIVEN CONCERNING PT'S REPORTED UNWITNESSED SEIZURE, ALSO VS, BLOOD SUGAR OF 117 AND SORE TONGUE, MD REQUEST MG LEVEL BE COMPLETED ON EARILIER DRAWN BLOOD. ORDERS PLACED PER CYNTHIA MENDOZA.
--- NOTE | 2022-11-16 06:47 | NUR ---
PLACED ORDER FOR AM MAG ADD ON PER REQUEST OF PRIMARY REJI NORIEGA. SEE NOTE FROM REJI NORIEGA FOR FURTHER DETAILS. ORDER PLACED AND LAB AWARE.
--- NOTE | 2022-11-16 07:41 | NUR ---
Patient awake, a&ox4. Patient reports her pain is tolerable at this time. Patient's hob elevated, patent airway. Patient is on 5.5L per nc, sp02 95%. Patient denies chest pain at this time. IV site patent, fluids infusing per provider order. Seizure pads intact. Call light within reach.
[2022-11-16 10:02] VITALS: BP 113/66
--- NOTE | 2022-11-16 10:04 | NUR ---
PATIENT IN BED THIS AM AFTER MEAL. VITALS AND I/O'S COMPLETED. PT HAS NO OTHER REQUESTS AT THIS TIME. CALL LIGHT WITHIN REACH.
--- NOTE | 2022-11-16 12:23 | NUR ---
Admin 30ml of Lortab 7.5/325mg po for reports of 7/10 throat pain. Ensure provided to patient at this time. Oxygen decresed from 3L to 2L per nc at this time, sp02 93%. IV site remains patent. No needs at this time.
[2022-11-16 13:37] VITALS: BP 126/72
--- NOTE | 2022-11-16 13:41 | NUR ---
PATIENT BACK INTO BED AFTER USING RESTROOM. VITALS AND I/O'S COMPLETED. PT REQUESTING STOOL SOFTENER. NURSE NOTIFIED. CALL LIGHT WITHIN REACH.
--- NOTE | 2022-11-16 15:46 | NUR ---
Patient awake sitting up in bed, no distress. Patient on 2L oxygen per nc, respirations even and non labored, spo02 93% at this time. Patient reports feeling better today. Patient denies chest pain today. IV remains patent, fluids infusing per provider order. Call light remains within reach.
[2022-11-16 17:35] VITALS: BP 134/78
--- NOTE | 2022-11-16 18:38 | NUR ---
Patient walked in hallway with her , tolerted well. Patient's spo2 88% post walk. Patient placed back on 1L of oxygen per nc, respirations non labored. Patient reports feeling well this evening. IV fluids infusing per provider order. Patient is tolerating her diet well. Call light within reach.
[2022-11-16 18:43] VITALS: BP 136/81
--- NOTE | 2022-11-16 19:15 | NUR ---
BEDSIDE REPORT RECEIVED FROM HERSON MENDOZA, PT AWAKE AND ALERT,STATES SHE HAD A GOOD DAY, ON COUCH, PT ASSISTED BACK TO BED, HS CARE GIVEN, BACK TO BED, SEIZURE PADS IN PLACE, OXYGEN REPLACED, IV PATENT, FRESH WATER GIVEN. PT RESTING.
[2022-11-16 20:34] VITALS: BP 119/72
--- NOTE | 2022-11-16 20:34 | NUR ---
PT AWAKE AND ALERT, LAYING IN BED, VS AND ACCUCHECK DONE, BG 202,GIVEN 3 UNITS HUMOLOG SQ, OXYGEN ON AT 2L/NC, ASSESSMENT COMPLETED, MG 2 GM IV STARTED PER ORDER, 1ST DOSE, IV SITE LEFT FOREARM INTACT, RT MEDS GIVEN PER ORDER, PT REQUESTING PAIN FOR SORE THROAT, MEDICATED PER ORDER, FRESH WATER GIVEN, SEIZURE PADS IN PLACE, HOB ELEVATED APPROX 30 DEGREES, SIDE RAILS UP X 4, CPOX IN PLACE AND SATS 94%.
--- NOTE | 2022-11-16 21:10 | NUR ---
PT ASSISTED UP TO BSC, VOIDING WELL, BACK TO BED, IV PATENT AND SEIZURE PADS IN PLACE.
--- NOTE | 2022-11-16 22:55 | NUR ---
PT RESTING WITH EYES CLOSED, RESP EVEN AND REG, SATS 88, OXYGEN INCREASED TO 3L/NC, 2ND DOSE OF MG 2 GM HUNG AND INFUSING WELL AT 50ML/HR. IV SITE INTACT.
--- NOTE | 2022-11-16 23:25 | NUR ---
PT ASLEEP, RESP EVEN AND REG, SATS 87-88, OXYGEN OFF, REPLACED, PT AWAKEN BRIEFLY THEN BACK TO SLEEP.
--- NOTE | 2022-11-17 00:15 | NUR ---
PT ASLEEP, SATS 90%, UNASYN HUNG AND INFUSING WELL PER ORDER.
--- NOTE | 2022-11-17 00:35 | NUR ---
PT ASSISTED UP TO BR PER NETO MENDOZA, GAIT STEADY, REPORTED TO HAVE VOIDED 800ML, BACK TO BED, DAUGHTER IN FOR A VISIT, PT WITHOUT COMPLAINTS, OXYGEN REPLACED AND CONTS AT 3L/NC.
--- NOTE | 2022-11-17 01:50 | NUR ---
PT REMAINS AWAKE, VISITING WITH DAUGHTER, WITHOUT REQUESTS AT THIS TIME.
--- NOTE | 2022-11-17 03:30 | NUR ---
PT ASLEEP, SATS 91%, AWAKEN BRIEFLY WHEN DAUGHTER LEFT ROOM, BACK TO SLEEP QUICKLY
--- NOTE | 2022-11-17 03:30 | NUR ---
PT ASLEEP, RESP RATE 20/MIN, OXYGEN OFF, SPOT CHECK DONE AND SATS 93-95% PLAN TO MONITOR AND REPLACE OXYGEN PRN.
--- NOTE | 2022-11-17 04:20 | NUR ---
PT APPEARS TO SLEEP, RESP EVEN AND REG, IV INFUSING WELL WITH NS AT 50ML/HR
--- NOTE | 2022-11-17 04:20 | NUR ---
PT CONTINUES TO APPEAR TO SLEEP, RESP EVEN AND REG.
[2022-11-17 06:30] VITALS: BP 126/75
--- NOTE | 2022-11-17 06:30 | NUR ---
PT AWAKEN FOR VS, OX INCREASED TO 3L/NC FOR SATS 87-88, ASSESSMENT DONE, PT STATES SHE FEELS A LITTLE SHAKY THIS AM, SKIN DRY, DESIRES TO VOID, ASSISTED UP TO BSC, VOIDED 900 ML YELLOW URINE, IV PATENT AND CONTS WITH NX AT 50ML/HR, PER LEFT FOREARM, SEIZURE PADS IN PLACE UPON RETURN TO BED, PT REQUESTING PAIN MED FOR SORE THROAT, MEDICATED PER ORDER LORATAB EXLIXIER 15ML, PT RESTING WITH EYES CLOSED.
--- NOTE | 2022-11-17 07:27 | NUR ---
PT SLEEPING SOUNDLY AT TIME OF SHIFT REPORT. BREATHING EVEN AND UNLABORED [address] OX IN PLACE, CALL LIGHT AND NEEDED ITEMS IN REACH.
[2022-11-17 08:41] VITALS: BP 140/84
--- NOTE | 2022-11-17 08:56 | NUR ---
PT USING I/S EFFECTIVELY INSTRUCTED
--- NOTE | 2022-11-17 09:33 | NUR ---
PT TOLERATES VERY LITTLE OF MORNING MEAL. OFFERED MORE AND DIFFERING ITEMS PT REFUSES. SHE CONTINUES TO USE THE I/S INDEPENDANTLY REQUESTED. PT UP TO THE SHOWER AT THIS TIME, BED LINENS CHANGED. WALKER PROVIDED FOR STABILTY. PT ENCOURAGED TO AMBULATE, STAY UP OUT OF BED, AND USE I/S THIS SHIFT. UNDERSTANDING VERBALIZED
--- NOTE | 2022-11-17 10:31 | NUR ---
PT AMBULATES THE FALCON SBA WELL TOLERATED NO SOB, SATS DROP TO 88% RECOVER TO LOW 90'S AFTER SITTING. HR 125 ALSO RECOVERS TO 97 IN A SHORT TIME. PT STATES SHE IS READY TO GO HOME, WILL SEE THE DOCTOR LATER
--- NOTE | 2022-11-17 11:02 | NUR ---
PT RESTING IN BED USING I/S DAUGHTER IS HERE TO VISIT PT DENIES NEEDS
[2022-11-17] MEDS ORDERED: AUGMENTIN250 MG/5 M PO (12:22)
[2022-11-17] MEDS ORDERED: VIRTUSSIN AC L118 ML PO (12:38)
--- NOTE | 2022-11-17 12:56 | NUR ---
PT WORKS WITH P/T THEN RETURNS TO RESTING IN BED AFTER BEING UP IN THE CHAIR ALL MORNING. SET UP WITH NOON MEAL DENIES FURTHER NEEDS.
--- NOTE | 2022-11-17 13:48 | NUR ---
PHARMACY SPEAKS TO PT REGARDING MEDICATIONS SHE DENIES QUESTIONS OR CONCERNS. DC INSTRUCTIONS PROVIDED PT AGREES TO F/U WITH PCP [facility] SAR[facility] WHO DID HER SURGERY. HOME MEDS RETURNED TO PT, ABEBA'S DC'D. PT WAITING FOR HER RIDE AT THIS TIME
[2022-11-17 13:52] VITALS: BP 139/80
== END 2022-11-17 15:25 | disposition home or self-care (01) | DRG 205 ==
LOC: ED 20:18 → MS 23:38
PROVIDERS: ADMIT Internal Medicine; ATTEND Internal Medicine
DX: J95.89 Other postprocedural complications and disorders of respiratory system, not elsewhere classified (principal); J69.0 Pneumonitis due to inhalation of food and vomit; J96.01 Acute respiratory failure with hypoxia; I10 Essential (primary) hypertension; Z20.822 Contact with and (suspected) exposure to COVID-19; E78.5 Hyperlipidemia, unspecified; E11.9 Type 2 diabetes mellitus without complications; G40.909 Epilepsy, unspecified, not intractable, without status epilepticus; I25.10 Atherosclerotic heart disease of native coronary artery without angina pectoris; Z90.89 Acquired absence of other organs; Z99.81 Dependence on supplemental oxygen; Z90.710 Acquired absence of both cervix and uterus; Z95.5 Presence of coronary angioplasty implant and graft; Z98.891 History of uterine scar from previous surgery; Z98.890 Other specified postprocedural states; Z88.2 Allergy status to sulfonamides; Z88.8 Allergy status to other drugs, medicaments and biological substances; Z91.040 Latex allergy status; Z91.038 Other insect allergy status; Z79.4 Long term (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 of insulin; Z79.82 Long term (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 of aspirin; Z79.899 Other long term (current) drug therapy; Y83.6 Removal of other organ (partial) (total) as the cause of abnormal reaction of the patient, or of later complication, without mention of misadventure at the time of the procedure
CPT/HCPCS: 36415; 71045; 80048; 80053; 81001; 83605; 83735; 84484; 85025; 87502; 93005; 93010; 94640; 94760; 94761; 94762; A9270; C9113; C9803; J0295; J0696; J1170; J1815; J2405; J3475; J7030; U0003

== ENCOUNTER 2022-11-23 15:49 | Emergency (ER) | payer MEDICARE ==
[~2022-11-23] VITALS: Ht 167.6 cm; Wt 89.1 kg
[~2022-11-23 15:49] MED LIST changes: +AUGMENTIN250 MG/5 M PO; +BIOTIN10000 MC1 PO; +HYDROCODONE-AC118 M1 PO; +LAMOTRIGINE150 MG PO; +LAMOTRIGINE200 MG PO; +LOSARTAN POTASS50 MG PO; +NITROGLYCERIN0.4 MG SL; +VIRTUSSIN AC L118 ML PO; +VITAMIN D3250 MC1 PO
--- OUTSIDE RECORDS SUMMARY | 2022-11-23 15:52 | XMS ---
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 - Patient with suicidal and/or homicidal ideations eloped. - Patient eloped with IV in place. Details: PATIENT LEFT AMA CRITERIA MET - 6 ED Visits in 6 Months - [facility] - 2 Visits in 30 Days CARE PROVIDERS JUAN MOORE Psychiatry \T\ Neurology: Neurology 09/21/2020-Current PHONE: Unknown [facility] Current PHONE: [phone] Elvira has no Care Guidelines for this patient. Care History Medical/Surgical 09/25/2020 [facility] - [facility] CALLED PATIENT- LEFT A VOICEMAIL- PATIENT DOES NOT HAVE A PCP IN THE AREA. E.D. VISIT COUNT (12 MO.) [facility] TOTAL 12 NOTE: Visits indicate total known visits. ED/UCC VISIT TRACKING (12 MO.) 11/23/2022 15:49 [facility] [place] TYPE: Emergency COMPLAINT: - DIZZINESS/WEAKNESS 11/14/2022 20:[address] [facility] [place] TYPE: Emergency COMPLAINT: - FEVER 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 of aspirin - [facility] (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 of insulin - termite control technician (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 of oral hypoglycemic drugs - Other emt intermediate (current) drug therapy - Type 2 diabetes mellitus without complications 09/10/2022 11:47 [facility] [place] TYPE: Emergency COMPLAINT: - SEIZURE DIAGNOSES: - Allergy status to sulfonamides - Bee allergy status - Chest pain, unspecified - Epilepsy, unspecified, not intractable, without status epilepticus - Essential (primary) hypertension - Latex allergy status - termite control technician (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 of aspirin - [facility] (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 of insulin - [facility] (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 of oral hypoglycemic drugs - Other long-term (current) drug therapy - Type 2 diabetes mellitus without complications 05/25/2022 09:17 [facility] [place] TYPE: Emergency COMPLAINT: - SEIZURE DIAGNOSES: - Allergy status to sulfonamides - Bee allergy status - Chest pain, unspecified - Epilepsy, unspecified, not intractable, without status epilepticus - Essential (primary) hypertension - Latex allergy status - termite control technician (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 of aspirin - [facility] (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 of insulin - termite control technician (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 of oral hypoglycemic drugs - Other emt intermediate (current) drug therapy - Type 2 diabetes mellitus without complications 04/08/2022 16:54 [facility] TYPE: Emergency COMPLAINT: - FALL/BACK PAIN DIAGNOSES: - Allergy status to other drugs, medicaments and biological substances - Allergy status to sulfonamides - Bee allergy status - Epilepsy, unspecified, not intractable, without status epilepticus - Essential (primary) hypertension - Fall from bed, initial encounter - Latex allergy status - termite control technician (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 of aspirin - termite control technician (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 of insulin - Low back pain, unspecified - Other emt intermediate (current) drug therapy - Strain of muscle, fascia and tendon of lower back, initial encounter - Type 2 diabetes mellitus without complications 03/26/2022 15:16 [facility] TYPE: Emergency DIAGNOSES: - Chest pain, unspecified - Chest Pain - CP 03/25/2022 19:13 [facility] [place] TYPE: Emergency COMPLAINT: - CHEST PAIN DIAGNOSES: - Allergy status to sulfonamides - Chest pain, unspecified - Contact with and (suspected) exposure to COVID-19 - Epilepsy, unspecified, not intractable, without status epilepticus - Essential (primary) hypertension - Latex allergy status - termite control technician (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 of aspirin - termite control technician (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 of insulin - [facility] (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 of oral hypoglycemic drugs - Non-ST elevation (NSTEMI) myocardial infarction - Other long-term (current) drug therapy - Type 2 diabetes mellitus without complications - Unstable angina 12/11/2021 13:40 [facility] [place] TYPE: Emergency COMPLAINT: - SEIZURE DIAGNOSES: - Allergy status to sulfonamides - Chest pain, unspecified - Epilepsy, unspecified, not intractable, without status epilepticus - Essential (primary) hypertension - Hypomagnesemia - Latex allergy status - termite control technician (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 of aspirin - [facility] (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 of insulin - [facility] (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 of oral hypoglycemic drugs - Other emt intermediate (current) drug therapy - Type 2 diabetes mellitus without complications - Unspecified convulsions 12/04/2021 18:28 [facility] [place] TYPE: Emergency COMPLAINT: - CHEST PAIN DIAGNOSES: - Allergy status to sulfonamides - Chest pain, unspecified - Epilepsy, unspecified, not intractable, without status epilepticus - Essential (primary) hypertension - Latex allergy status - [facility] (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 of insulin - Other chest pain - Other long-term (current) drug therapy - Presence of coronary angioplasty implant and graft - Type 2 diabetes mellitus without complications INPATIENT VISIT TRACKING (12 MO.) 11/14/2022 23:[address] [facility] [place] TYPE: Medical Surgical COMPLAINT: - PNEUMONIA,POST OP TONSILLECTOMY DIAGNOSES: - Acquired absence of both cervix and uterus - Acquired absence of both cervix and uterus - Acquired absence of other organs - Acquired absence of other organs - Acute respiratory failure with hypoxia - Acute respiratory failure with hypoxia - Allergy status to other drugs, medicaments and biological substances - Allergy status to other drugs, medicaments and biological substances - Allergy status to sulfonamides - Allergy status to sulfonamides - Atherosclerotic heart disease of [place] coronary artery without angina pectoris - Atherosclerotic heart disease of [place] coronary artery without angina pectoris - Contact with and (suspected) exposure to COVID-19 - Contact with and (suspected) exposure to COVID-19 - Dependence on supplemental oxygen - Dependence on supplemental oxygen - Epilepsy, unspecified, not intractable, without status epilepticus - Epilepsy, unspecified, not intractable, without status epilepticus - Essential (primary) hypertension - Essential (primary) hypertension - History of uterine scar from previous surgery - History of uterine scar from previous surgery - Hyperlipidemia, unspecified - Hyperlipidemia, unspecified - Latex allergy status - Latex allergy status - termite control technician (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 of aspirin - termite control technician (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 of aspirin - [facility] (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 of insulin - termite control technician (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 of insulin - Other insect allergy status - Other insect allergy status - Other emt intermediate (current) drug therapy - Other emt intermediate (current) drug therapy - Other postprocedural complications and disorders of respiratory system, not elsewhere classified - Other specified postprocedural states - Other specified postprocedural states - Pneumonia, unspecified organism - Pneumonitis due to inhalation of food and vomit - Pneumonitis due to inhalation of food and vomit - Presence of coronary angioplasty implant and graft - Presence of coronary angioplasty implant and graft - Removal of other organ (partial) (total) as the cause of abnormal reaction of the patient, or of later complication, without mention of misadventure at the time of the procedure - Type 2 diabetes mellitus without complications - Type 2 diabetes mellitus without complications [email or web address]
[2022-11-23] MEDS ORDERED: REGLAN10 MG PO (18:20)
[2022-11-23 19:01] VITALS: BP 125/81
--- NOTE | 2022-11-24 21:40 | EKG ---
[facility] [address] [place] [address] Signed Normal sinus rhythm Normal ECG When compared with ECG of 15-NOV-2022 18:20, Borderline criteria for Inferior infarct are no longer present ST no longer depressed in Inferior leads Confirmed by Jake Romero MD () on 11/24/2022 9:40:11 PM Electronically Signed By: JAKE ROMERO MD 11/24/22 214 PATIENT NAME: SELVIN YAO Electrocardiogram DATE OF : 63 PHYSICIAN: JAKE ROMERO MD REPORT #: [id number] REPORT IS CONFIDENTIAL AND NOT TO BE RELEASED WITHOUT AUTHORIZATION
== END 2022-11-23 19:02 | disposition home or self-care (01) ==
LOC: ED 15:49
DX: R42 Dizziness and giddiness (principal); G40.909 Epilepsy, unspecified, not intractable, without status epilepticus; E11.9 Type 2 diabetes mellitus without complications; I10 Essential (primary) hypertension; Z88.8 Allergy status to other drugs, medicaments and biological substances; Z91.040 Latex allergy status; Z88.2 Allergy status to sulfonamides; Z91.030 Bee allergy status; Z79.899 Other long term (current) drug therapy; Z79.82 Long term (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 of aspirin; Z79.4 Long term (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 of insulin; Z79.84 Long term (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 of oral hypoglycemic drugs
CPT/HCPCS: 93005; 93010; 96374; 99284-25; J2765

== ENCOUNTER 2023-02-02 17:02 | Emergency (ER) | payer MEDICARE ==
[~2023-02-02] VITALS: Ht 167.6 cm; Wt 87.3 kg
[~2023-02-02 17:02] MED LIST changes: +COZAAR50 MG PO; +REGLAN10 MG PO
--- OUTSIDE RECORDS SUMMARY | 2023-02-02 17:04 | XMS ---
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 - Patient with suicidal and/or homicidal ideations eloped. - Patient eloped with IV in place. Details: PATIENT LEFT AMA CRITERIA MET - 6 ED Visits in 6 Months - [facility] CARE PROVIDERS JUAN MOORE Psychiatry \T\ Neurology: Neurology 09/21/2020-[facility]: [phone] Elvira has no Care Guidelines for this patient. Care History Medical/Surgical 09/25/2020 [facility] - [facility] CALLED PATIENT- LEFT A VOICEMAIL- PATIENT DOES NOT HAVE A PCP IN THE AREA. E.D. VISIT COUNT (12 MO.) [address] [facility] [address] [facility] [place] 9 KIRAN Villela TOTAL 11 NOTE: Visits indicate total known visits. 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 - [facility]CI (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 of insulin - Other skilled nursing (current) drug therapy - Type 2 diabetes mellitus without complications 09/19/2022 12:28 [facility] [place] [place] TYPE: Emergency COMPLAINT: - CHEST PAIN DIAGNOSES: - Allergy status to other drugs, medicaments and biological substances - Allergy status to sulfonamides - Bee allergy status - Chest pain, unspecified - Epilepsy, unspecified, not intractable, without status epilepticus - Essential (primary) hypertension - Latex allergy status - 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 - [facility]CI (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 of insulin - [facility] (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 of oral hypoglycemic drugs - Other skilled nursing (current) drug therapy - Type 2 diabetes mellitus without complications 09/10/2022 11:47 KIR[facility] Weems [place] TYPE: Emergency COMPLAINT: - SEIZURE DIAGNOSES: - Allergy status to sulfonamides - Bee allergy status - Chest pain, unspecified - Epilepsy, unspecified, not intractable, without status epilepticus - Essential (primary) hypertension - Latex allergy status - [facility]CI (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 of aspirin - [facility] (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 of insulin - [facility] (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 of oral hypoglycemic drugs - Other skilled nursing (current) drug therapy - Type 2 diabetes mellitus without complications 05/25/2022 09:17 [facility] [place] TYPE: Emergency COMPLAINT: - SEIZURE DIAGNOSES: - Allergy status to sulfonamides - Bee allergy status - Chest pain, unspecified - Epilepsy, unspecified, not intractable, without status epilepticus - Essential (primary) hypertension - Latex allergy status - [facility]CI (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 of aspirin - 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 - [facility] (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 of oral hypoglycemic drugs - Other continuous churn buttermaker (current) drug therapy - Type 2 diabetes mellitus without complications 04/08/2022 16:54 KIRAN Luevano TYPE: Emergency COMPLAINT: - FALL/BACK PAIN DIAGNOSES: - Allergy status to other drugs, medicaments and biological substances - Allergy status to sulfonamides - Bee allergy status - Epilepsy, unspecified, not intractable, without status epilepticus - Essential (primary) hypertension - Fall from bed, initial encounter - Latex allergy status - 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 - [facility]CI (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 of insulin - Low back pain, unspecified - Other skilled nursing (current) drug therapy - Strain of muscle, fascia and tendon of lower back, initial encounter - Type 2 diabetes mellitus without complications [facility] DIAGNOSES: - Chest pain, unspecified - Chest Pain - CP 03/25/2022 19:13 [facility] [place] TYPE: Emergency COMPLAINT: - CHEST PAIN DIAGNOSES: - Allergy status to sulfonamides - Chest pain, unspecified - Contact with and (suspected) exposure to COVID-19 - Epilepsy, unspecified, not intractable, without status epilepticus - Essential (primary) hypertension - Latex allergy status - 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 - 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 - 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 yard (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 of oral hypoglycemic drugs - Non-ST elevation (NSTEMI) myocardial infarction - Other skilled nursing (current) drug therapy - Type 2 diabetes mellitus without complications - Unstable angina INPATIENT VISIT TRACKING (12 MO.) 11/14/2022 23:38 [facility] [place] TYPE: Medical Surgical COMPLAINT: - PNEUMONIA,POST [...] to sulfonamides - Atherosclerotic heart disease of [place] coronary artery without angina pectoris - Atherosclerotic heart disease of [place] coronary artery without angina pectoris - Contact [...] allergy status - Latex allergy status - [facility]CI (current) use of aspirin - 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
[2023-02-02 19:07] VITALS: BP 134/84
--- NOTE | 2023-02-03 06:19 | EKG ---
[facility] [address] [facility] [place], [place] [address] Signed Normal sinus rhythm Normal ECG No previous ECGs available Confirmed by NERI BOLAND MD ([id number]) on 02/03/2023 6:19:33 AM Electronically Signed By: NERI BOLAND 02/03/23 0619 PATIENT NAME: SELVIN YAO Electrocardiogram DATE OF : 63 PHYSICIAN: NERI BOLAND REPORT #: [id number] REPORT IS CONFIDENTIAL AND NOT TO BE RELEASED WITHOUT AUTHORIZATION
== END 2023-02-02 19:08 | disposition home or self-care (01) ==
LOC: ED 17:02
DX: R07.9 Chest pain, unspecified (principal); J98.11 Atelectasis; I25.10 Atherosclerotic heart disease of native coronary artery without angina pectoris; I10 Essential (primary) hypertension; E11.9 Type 2 diabetes mellitus without complications; G40.909 Epilepsy, unspecified, not intractable, without status epilepticus; I25.2 Old myocardial infarction; Z95.5 Presence of coronary angioplasty implant and graft; Z88.2 Allergy status to sulfonamides; Z88.8 Allergy status to other drugs, medicaments and biological substances; Z91.030 Bee allergy status; Z91.040 Latex allergy status; Z79.899 Other long term (current) drug therapy; Z79.4 Long term (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 of insulin; Z79.82 Long term (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 of aspirin
CPT/HCPCS: 36415; 71045; 80053; 83735; 83880; 84484; 85025; 93005; 93010; 94640; A9270

== ENCOUNTER 2023-03-21 10:23 | Emergency (ER) | payer MEDICARE ==
[~2023-03-21] VITALS: Ht 167.6 cm; Wt 90.8 kg
[~2023-03-21 10:23] MED LIST changes: +CLOBAZAM20 MG PO; +LORAZEPAM0.5 MG PO; +PAXLOVID 300-11 EACH PO; +VENTOLIN HFA18 GM INH
--- OUTSIDE RECORDS SUMMARY | 2023-03-21 10:26 | XMS ---
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 - Patient with suicidal and/or homicidal ideations eloped. - Patient eloped with IV in place. Details: PATIENT LEFT AMA CRITERIA MET - 6 ED Visits in 6 Months - [facility] - 2 Visits in 30 Days CARE PROVIDERS JUAN MOORE Psychiatry \T\ Neurology: Neurology 09/21/2020-Current PHONE: Unknown NICK [facility] Current PHONE: [phone] Elvira has no Care Guidelines for this patient. Care History Medical/Surgical 09/25/2020 [facility] - [facility] CALLED PATIENT- LEFT A VOICEMAIL- PATIENT DOES NOT HAVE A PCP IN THE AREA. E.D. VISIT COUNT (12 MO.) [address] [facility] [address] [facility] [place] TOTAL 15 NOTE: Visits indicate total known visits. ED/UCC VISIT TRACKING (12 MO.) 03/21/2023 10:25 KIR[facility] Weems [place] TYPE: Emergency COMPLAINT: - DIZZY, STUMBLING, HARD TO STAND 03/15/2023 21:08 [facility] [place] TYPE: Emergency COMPLAINT: - CHEST PAIN DIAGNOSES: - Allergy status to other drugs, medicaments and biological substances - Allergy status to sulfonamides - Bee allergy status - COVID-19 - Epilepsy, unspecified, not intractable, without status epilepticus - Essential (primary) hypertension - Fever, unspecified - Latex allergy status - alf (current) use of aspirin - extermination supervisor (current) use of insulin - alf (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 of oral hypoglycemic drugs - Other penitentiary (current) drug therapy - Type 2 diabetes mellitus without complications 02/15/2023 16:07 KIR[facility] Weems [place] TYPE: Emergency COMPLAINT: - LOW BLOOD PRESSURE 116/73 DIAGNOSES: - Allergy status to other drugs, medicaments and biological substances - Allergy status to sulfonamides - Bee allergy status - Dizziness and giddiness - Epilepsy, unspecified, not intractable, without status epilepticus - Essential (primary) hypertension - Latex allergy status - extermination supervisor (current) use of aspirin - alf (current) use of insulin - extermination supervisor (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 of oral hypoglycemic drugs - Old myocardial infarction - Other terminal gauger supervisor (current) drug therapy - Presence of coronary angioplasty implant and graft - Type 2 diabetes mellitus without complications 02/09/2023 14:02 [facility] [place] TYPE: Emergency COMPLAINT: - SEIZURE DIAGNOSES: - Allergy status to other drugs, medicaments and biological substances - Allergy status to sulfonamides - Bee allergy status - Chest pain, unspecified - Epilepsy, unspecified, not intractable, without status epilepticus - Essential (primary) hypertension - Latex allergy status - alf (current) use of aspirin - extermination supervisor (current) use of insulin - Old myocardial infarction - Other terminal gauger supervisor (current) drug therapy - Unspecified convulsions 02/02/2023 17:02 [facility] [place] TYPE: Emergency COMPLAINT: - SOB DIAGNOSES: - Allergy status to other drugs, medicaments and biological substances - Allergy status to sulfonamides - Atelectasis - Atherosclerotic heart disease of [place] coronary artery without angina pectoris - Bee allergy status - Chest pain, unspecified - Epilepsy, unspecified, not intractable, without status epilepticus - Essential (primary) hypertension - Latex allergy status - extermination supervisor (current) use of aspirin - alf (current) use of insulin - Old myocardial infarction - Other penitentiary (current) drug therapy - Presence of coronary angioplasty implant and graft - Type 2 diabetes mellitus without complications 11/23/2022 15:49 [facility] [place] TYPE: Emergency COMPLAINT: - DIZZINESS/WEAKNESS DIAGNOSES: - Allergy status to other drugs, medicaments and biological substances - Allergy status to sulfonamides - Bee allergy status - Dizziness and giddiness - Epilepsy, unspecified, not intractable, without status epilepticus - Essential (primary) hypertension - Latex allergy status - extermination supervisor (current) use of aspirin - extermination supervisor (current) use of insulin - alf (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 of oral hypoglycemic drugs - Other penitentiary (current) drug therapy - Type 2 diabetes mellitus without complications 11/14/2022 20:18 KIRAN Weems [place] TYPE: Emergency COMPLAINT: - FEVER 10/22[facility]2022 [facility] TYPE: Emergency DIAGNOSES: - Epilepsy, unspecified, [...] initial encounter - Latex allergy status - alf (current) use of aspirin - alf (current) use of insulin - Other terminal gauger supervisor (current) drug therapy - Type 2 diabetes mellitus without complications 09/19/2022 12:28 KIRAN [facility]ems [place] TYPE: Emergency COMPLAINT: - CHEST PAIN DIAGNOSES: - Allergy status to other drugs, medicaments and biological substances - Allergy status to sulfonamides - Bee allergy status - Chest pain, unspecified - Epilepsy, unspecified, not intractable, without status epilepticus - Essential (primary) hypertension - Latex allergy status - extermination supervisor (current) use of aspirin - alf (current) use of insulin - alf (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 of oral hypoglycemic drugs - Other terminal gauger supervisor (current) drug therapy - Type 2 diabetes mellitus without complications 09/10/2022 11:47 KIRAN Weems [place] TYPE: Emergency COMPLAINT: - SEIZURE DIAGNOSES: - Allergy status to sulfonamides - Bee allergy status - Chest pain, unspecified - Epilepsy, unspecified, not intractable, without status epilepticus - Essential (primary) hypertension - Latex allergy status - alf (current) use of aspirin - alf (current) use of insulin - extermination supervisor (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 of oral hypoglycemic drugs - Other terminal gauger supervisor (current) drug therapy - Type 2 diabetes mellitus without complications 05/25/2022 09:17 KIRAN Weems [place] TYPE: Emergency COMPLAINT: - SEIZURE DIAGNOSES: - Allergy status to sulfonamides - Bee allergy status - Chest pain, unspecified - Epilepsy, unspecified, not intractable, without status epilepticus - Essential (primary) hypertension - Latex allergy status - extermination supervisor (current) use of aspirin - alf (current) use of insulin - alf (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 of oral hypoglycemic drugs - Other penitentiary (current) drug therapy - Type 2 diabetes mellitus without complications 04/08/2022 16:54 KIRAN Luevano TYPE: Emergency COMPLAINT: - FALL/BACK PAIN DIAGNOSES: - Allergy status to other drugs, medicaments and biological substances - Allergy status to sulfonamides - Bee allergy status - Epilepsy, unspecified, not intractable, without status epilepticus - Essential (primary) hypertension - Fall from bed, initial encounter - Latex allergy status - alf (current) use of aspirin - alf (current) use of insulin - Low back pain, unspecified - Other penitentiary (current) drug therapy - Strain of muscle, fascia and tendon of lower back, initial encounter - Type 2 diabetes mellitus without complications [facility] DIAGNOSES: - Chest pain, unspecified - Chest Pain - CP 03/25/2022 19:13 KIRAN [place]ems [place] TYPE: Emergency COMPLAINT: - CHEST PAIN DIAGNOSES: - Allergy status to sulfonamides - Chest pain, unspecified - Contact with and (suspected) exposure to COVID-19 - Epilepsy, unspecified, not intractable, without status epilepticus - Essential (primary) hypertension - Latex allergy status - alf (current) use of aspirin - alf (current) use of insulin - alf (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 of oral hypoglycemic drugs - Non-ST elevation (NSTEMI) myocardial infarction - Other penitentiary (current) drug therapy - Type 2 diabetes [...] to sulfonamides - Atherosclerotic heart disease of [place] coronary artery without angina pectoris - Atherosclerotic heart disease of [place] coronary artery without angina pectoris - Contact [...] allergy status - Latex allergy status - alf (current) use of aspirin - alf (current) use of aspirin - alf (current) use of insulin - extermination supervisor (current) use of insulin - Other insect allergy status - Other insect allergy status - Other penitentiary (current) drug therapy - Other penitentiary (current) drug therapy - Other postprocedural complications [...] - Type 2 diabetes mellitus without complications [email or web address]
[2023-03-21 14:22] VITALS: BP 148/88
== END 2023-03-21 14:22 | disposition home or self-care (01) ==
LOC: ED 10:23
DX: U07.1 COVID-19 (principal); I10 Essential (primary) hypertension; E11.9 Type 2 diabetes mellitus without complications; G40.909 Epilepsy, unspecified, not intractable, without status epilepticus; I25.2 Old myocardial infarction; Z88.2 Allergy status to sulfonamides; Z88.8 Allergy status to other drugs, medicaments and biological substances; Z91.030 Bee allergy status; Z91.040 Latex allergy status; Z79.899 Other long term (current) drug therapy; Z79.82 Long term (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 of aspirin; Z79.4 Long term (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 of insulin
CPT/HCPCS: 70450; 99284-25; A9270

== ENCOUNTER 2024-01-29 20:08 | Emergency (ER) | payer MEDICARE ==
[~2024-01-29] VITALS: Ht 167.6 cm; Wt 92.0 kg
[~2024-01-29 20:08] MED LIST changes: +SPIRONOLACTONE25 MG
[2024-01-29] MEDS ORDERED: OZEMPIC1 MG/0.71 SQ (20:22)
[2024-01-29] MEDS ORDERED: POTASSIUM CHLO10 MEQ PO (20:24)
[2024-01-29 20:28] LABS: HEMATOCRIT 39.4 % (35.0-50.0); HEMOGLOBIN 12.8 g/dL (12.0-18.0); MCV 87.9 fl (81-99); RBC 4.48 M/ul (4.3-5.7)
[2024-01-29] MEDS ORDERED: ASPIRIN 81 MG CHEW PO ONE (20:30)
[2024-01-29] MEDS ORDERED: MORPHINE SULFATE 4 MG/ML VIAL IV ONE (20:30)
[2024-01-29] MEDS ORDERED: NITROGLYCERIN PACKET TOP ONE (20:30)
[2024-01-29 20:31] LABS: BASOPHILS 0.9 % (0-2); EOSINOPHILS 3.2 % (0-6); LYMPHOCYTES 42.5 % (24-44); MCH 28.5 (27-36); MCHC 32.4 g/dl (30-36); MONOCYTES 9.4 % (0-12); PLATELET COUNT 238 K/uL (140-440); RDW 15.2 (10.5-15.0)
[2024-01-29 20:39] LABS: PARTIAL THROMBOPLASTIN TIME 25.8 Sec (22.9-41.3)
[2024-01-29 20:46] LABS: INR 0.99 (0.80-1.30); PROTIME 12.4 Sec (11.2-14.2)
[2024-01-29 20:50] LABS: ALBUMIN 3.8 g/dL (3.4-5.0); ALBUMIN/GLOBULIN RATIO 0.95 (1.1-2.4); ALCOHOL, MEDICAL <3 ng/dL (<3); ALKALINE PHOSPHATASE 108 U/L (46-116); ALT (SGPT) 26 U/L (14-59); ANION GAP 11.3 (7-21); AST (SGOT) 15 U/L (15-37); BILIRUBIN, TOTAL 0.3 ng/dL (0.2-1.0); BUN/CREATININE RATIO 16.66 (6.0-28.6); CALCIUM 9.7 mg/dL (8.5-10.1); CARBON DIOXIDE 28 mmol/L (21-32); CHLORIDE 103 mmol/L (98-107); CREATININE, SERUM 1.08 mg/dL (0.55-1.02); GLOMERULAR FILTRATION RATE,EST 59 mL/min (>60); MAGNESIUM 1.7 mg/dL (1.8-2.4); POTASSIUM 4.3 mmol/L (3.5-5.1); PROTEIN, TOTAL 7.8 g/dL (6.4-8.2); UREA NITROGEN 18 mg/dL (7-18)
[2024-01-29 22:12] VITALS: BP 131/97
--- NOTE | 2024-01-30 19:31 | EKG ---
[facility] [address] [facility] [place], [place] [address] Signed Normal sinus rhythm Normal ECG No previous ECGs available Confirmed by FREDRICK LEBRON MD ([id number]) on 01/30/2024 7:31:35 PM Electronically Signed By: FREDRICK LEBRON 01/30/24 193 PATIENT NAME: SELVIN YAO Electrocardiogram DATE OF : 63 PHYSICIAN: FREDRICK LEBRON REPORT #: [id number] REPORT IS CONFIDENTIAL AND NOT TO BE RELEASED WITHOUT AUTHORIZATION
== END 2024-01-29 22:12 | disposition home or self-care (01) ==
LOC: ED 20:08
PROVIDERS: Family Medicine
DX: R07.89 Other chest pain (principal); I11.9 Hypertensive heart disease without heart failure; I50.9 Heart failure, unspecified; E11.9 Type 2 diabetes mellitus without complications; Z79.4 Long term (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 of insulin; Z79.82 Long term (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 of aspirin; Z79.84 Long term (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 of oral hypoglycemic drugs; Z79.899 Other long term (current) drug therapy; Z88.2 Allergy status to sulfonamides; Z91.040 Latex allergy status; Z88.8 Allergy status to other drugs, medicaments and biological substances; Z91.030 Bee allergy status
CPT/HCPCS: 36415; 71045; 80053; 83735; 83880; 84484; 85025; 85379; 85610; 85730; 93005; 93010; 96374; 99285-25; A9270; G0480; J2270

== ENCOUNTER 2024-02-28 21:28 | Emergency (ER) | payer MEDICARE ==
[~2024-02-28] VITALS: Ht 167.6 cm; Wt 89.6 kg
[~2024-02-28 21:28] MED LIST changes: +OZEMPIC1 MG/0.71 SQ; +POTASSIUM CHLO10 MEQ PO
[2024-02-28 22:03] LABS: EOSINOPHILS 2.3 % (0-6); HEMATOCRIT 37.5 % (35.0-50.0); HEMOGLOBIN 12.6 g/dL (12.0-18.0); LYMPHOCYTES 45.8 % (24-44); MCH 29.8 (27-36); MCHC 33.7 g/dl (30-36); MCV 88.4 fl (81-99); MONOCYTES 8.5 % (0-12); NEUTROPHILS 42.4 % (39-80); PLATELET COUNT 237 K/uL (140-440); RBC 4.24 M/ul (4.3-5.7); RDW 14.8 (10.5-15.0)
[2024-02-28 22:08] LABS: ALBUMIN 4.2 g/dL (3.4-5.0); ALBUMIN/GLOBULIN RATIO 1.08 (1.1-2.4); BILIRUBIN, TOTAL 0.4 ng/dL (0.2-1.0); BUN/CREATININE RATIO 16.84 (6.0-28.6); CREATININE, SERUM 1.9 mg/dL (0.55-1.02); PROTEIN, TOTAL 8.1 g/dL (6.4-8.2)
[2024-02-28] MEDS ORDERED: TORSEMIDE10 MG PO (22:13)
[2024-02-28 23:30] VITALS: BP 121/84
--- NOTE | 2024-02-29 12:40 | EKG ---
[facility] [address] [facility] [place], [place] [address] Signed Normal sinus rhythm Normal ECG When compared with ECG of 29-JAN-2024 20:09, No significant change was found Confirmed by Billy Stapleton MD ([id number]) on 02/29/2024 12:40:15 PM Electronically Signed By: BILLY STAPLETON MD 02/29/24 1240 PATIENT NAME: SELVIN YAO Electrocardiogram DATE OF : 63 PHYSICIAN: BILLY STAPLETON MD REPORT #: [id number] REPORT IS CONFIDENTIAL AND NOT TO BE RELEASED WITHOUT AUTHORIZATION
== END 2024-02-28 23:30 | disposition home or self-care (01) ==
LOC: ED 21:28
PROVIDERS: Emergency Medicine
DX: G40.909 Epilepsy, unspecified, not intractable, without status epilepticus (principal); E11.9 Type 2 diabetes mellitus without complications; I11.0 Hypertensive heart disease with heart failure; I50.9 Heart failure, unspecified; I25.2 Old myocardial infarction; Z95.5 Presence of coronary angioplasty implant and graft; Z88.2 Allergy status to sulfonamides; Z88.8 Allergy status to other drugs, medicaments and biological substances; Z91.030 Bee allergy status; Z91.040 Latex allergy status; Z79.82 Long term (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 of aspirin; Z79.4 Long term (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 of insulin; Z79.84 Long term (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 of oral hypoglycemic drugs; Z79.899 Other long term (current) drug therapy
CPT/HCPCS: 36415; 80053; 85025; 93005; 93010; 99284

== ENCOUNTER 2024-03-12 16:20 | Emergency (ER) | payer MEDICARE ==
[~2024-03-12] VITALS: Ht 167.6 cm; Wt 76.8 kg
[~2024-03-12 16:20] MED LIST changes: +TORSEMIDE10 MG PO
[2024-03-12 17:02] LABS: BASOPHILS 0.3 % (0-2); EOSINOPHILS 0.8 % (0-6); HEMATOCRIT 37.8 % (35.0-50.0); HEMOGLOBIN 12.7 g/dL (12.0-18.0); LYMPHOCYTES 17.8 % (24-44); MCH 29.3 (27-36); MCHC 33.7 g/dl (30-36); MONOCYTES 5.3 % (0-12); NEUTROPHILS 75.8 % (39-80); PLATELET COUNT 231 K/uL (140-440); RBC 4.34 M/ul (4.3-5.7); RDW 14.6 (10.5-15.0)
[2024-03-12 17:17] LABS: ALCOHOL, MEDICAL <3 ng/dL (<3); ALKALINE PHOSPHATASE 99 U/L (46-116); ALT (SGPT) 23 U/L (14-59); ANION GAP 16.4 (7-21); AST (SGOT) 22 U/L (15-37); BILIRUBIN, TOTAL 0.4 ng/dL (0.2-1.0); BUN/CREATININE RATIO 22.66 (6.0-28.6); CALCIUM 9.8 mg/dL (8.5-10.1); CARBON DIOXIDE 24 mmol/L (21-32); CHLORIDE 100 mmol/L (98-107); GLOMERULAR FILTRATION RATE,EST 40 mL/min (>60); POTASSIUM 4.4 mmol/L (3.5-5.1); UREA NITROGEN 34 mg/dL (7-18)
[2024-03-12] MEDS ORDERED: DIPHTH,PERTUSS(ACELL),TET VAC 0.5 ML SYRINGE IM ONE (17:45)
[2024-03-12] MEDS ORDERED: AMOXICILLIN/CLAVULANATE K 875 MG TAB PO ONE (17:45)
[2024-03-12] MEDS ORDERED: AMOX TR-K CLV1 EAC1 PO (18:56)
[2024-03-12 19:06] VITALS: BP 134/97
== END 2024-03-12 19:08 | disposition home or self-care (01) ==
LOC: ED 16:20
PROVIDERS: Emergency Medicine
DX: G40.909 Epilepsy, unspecified, not intractable, without status epilepticus (principal); S61.452A Open bite of left hand, initial encounter; W55.01XA Bitten by cat, initial encounter; E86.0 Dehydration; E11.9 Type 2 diabetes mellitus without complications; I11.0 Hypertensive heart disease with heart failure; I50.9 Heart failure, unspecified; I25.2 Old myocardial infarction; G47.30 Sleep apnea, unspecified; Z95.5 Presence of coronary angioplasty implant and graft; Z91.038 Other insect allergy status; Z88.2 Allergy status to sulfonamides; Z91.040 Latex allergy status; Z88.8 Allergy status to other drugs, medicaments and biological substances; Z79.82 Long term (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 of aspirin; Z79.84 Long term (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 of oral hypoglycemic drugs; Z79.4 Long term (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 of insulin; Z79.85 Long-term (current) use of injectable non-insulin antidiabetic drugs; Z79.899 Other long term (current) drug therapy
CPT/HCPCS: 36415; 80053; 85025; 90471; 90715; 99284-25; G0480

== ENCOUNTER 2024-03-15 14:21 | Emergency (ER) | payer MEDICARE ==
[~2024-03-15] VITALS: Ht 167.6 cm; Wt 89.0 kg
[~2024-03-15 14:21] MED LIST changes: +AMOX TR-K CLV1 EAC1 PO
[2024-03-15] MEDS ORDERED: OZEMPIC0.25 MG/02 (14:38)
[2024-03-15 15:19] LABS: BASOPHILS 0.7 % (0-2); HEMATOCRIT 37.1 % (35.0-50.0); HEMOGLOBIN 12.3 g/dL (12.0-18.0); LYMPHOCYTES 31.6 % (24-44); MCH 29.2 (27-36); MCHC 33.1 g/dl (30-36); NEUTROPHILS 58.7 % (39-80); PLATELET COUNT 221 K/uL (140-440); RBC 4.21 M/ul (4.3-5.7); RDW 14.6 (10.5-15.0)
[2024-03-15] MEDS ORDERED: CEFTRIAXONE/SODIUM CHLORIDE 2 GM/100 ML PIGGYBACK IV SCH (15:21)
[2024-03-15 15:26] LABS: ANION GAP 13.9 (7-21); BUN/CREATININE RATIO 19.85 (6.0-28.6); CALCIUM 10.1 mg/dL (8.5-10.1); CREATININE, SERUM 1.36 mg/dL (0.55-1.02); POTASSIUM 4.9 mmol/L (3.5-5.1)
[2024-03-15] MEDS ORDERED: KETOROLAC TROMETHAMINE 15 MG/ML VIAL IV ONE (15:30)
[2024-03-15] MEDS ORDERED: ONDANSETRON ODT4 MG PO (16:41)
[2024-03-15] MEDS ORDERED: HYDROCODON-ACE1 EA10 PO (16:41)
[2024-03-15 16:45] VITALS: BP 113/86
== END 2024-03-15 16:45 | disposition home or self-care (01) ==
LOC: ED 14:21
PROVIDERS: Emergency Medicine
DX: S61.552A Open bite of left wrist, initial encounter (principal); I25.2 Old myocardial infarction; I11.0 Hypertensive heart disease with heart failure; I50.9 Heart failure, unspecified; W55.01XA Bitten by cat, initial encounter; Z95.5 Presence of coronary angioplasty implant and graft; Z91.030 Bee allergy status; Z88.2 Allergy status to sulfonamides; Z91.040 Latex allergy status; Z88.8 Allergy status to other drugs, medicaments and biological substances; Z79.82 Long term (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 of aspirin; Z79.84 Long term (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 of oral hypoglycemic drugs; Z79.4 Long term (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 of insulin; Z79.899 Other long term (current) drug therapy
CPT/HCPCS: 36415; 73110; 80048; 85025; 96374; 96375; 99283-25; J0696; J1885

== ENCOUNTER 2024-03-25 22:41 | Emergency (ER) | payer MEDICARE ==
[~2024-03-25] VITALS: Ht 167.6 cm; Wt 93.3 kg
[~2024-03-25 22:41] MED LIST changes: +HYDROCODON-ACE1 EA10 PO; +ONDANSETRON ODT4 MG PO; +OZEMPIC0.25 MG/02
[2024-03-25 23:35] LABS: BASOPHILS 0.7 % (0-2); EOSINOPHILS 2.8 % (0-6); HEMATOCRIT 35.1 % (35.0-50.0); HEMOGLOBIN 11.6 g/dL (12.0-18.0); LYMPHOCYTES 34.5 % (24-44); MCH 29.3 (27-36); MCV 88.8 fl (81-99); MONOCYTES 7.6 % (0-12); NEUTROPHILS 54.4 % (39-80); PLATELET COUNT 260 K/uL (140-440); RBC 3.96 M/ul (4.3-5.7); RDW 14.8 (10.5-15.0)
[2024-03-25 23:50] LABS: ALBUMIN 3.8 g/dL (3.4-5.0); ALBUMIN/GLOBULIN RATIO 1.03 (1.1-2.4); ALCOHOL, MEDICAL <3 ng/dL (<3); ALKALINE PHOSPHATASE 99 U/L (46-116); ALT (SGPT) 22 U/L (14-59); ANION GAP 12.3 (7-21); AST (SGOT) 15 U/L (15-37); BILIRUBIN, TOTAL 0.3 ng/dL (0.2-1.0); BUN/CREATININE RATIO 20.32 (6.0-28.6); CALCIUM 9.8 mg/dL (8.5-10.1); CARBON DIOXIDE 27 mmol/L (21-32); CHLORIDE 104 mmol/L (98-107); CREATININE, SERUM 1.23 mg/dL (0.55-1.02); GLOMERULAR FILTRATION RATE,EST 50 mL/min (>60); MAGNESIUM 1.6 mg/dL (1.8-2.4); POTASSIUM 4.3 mmol/L (3.5-5.1); PROTEIN, TOTAL 7.5 g/dL (6.4-8.2); UREA NITROGEN 25 mg/dL (7-18)
[2024-03-26] MEDS ORDERED: MAGNESIUM OXIDE 400 MG TABLET PO ONE (00:45)
[2024-03-26 01:45] LABS: BILIRUBIN, URINE NEGATIVE (negative); BLOOD/HGB, URINE NEGATIVE (Negative); KETONE, URINE TRACE (Negative); LEUK ESTERASE, URINE NEGATIVE (negative); NITRITE, URINE NEGATIVE (negative)
[2024-03-26 01:58] LABS: AMPHETAMINES, URINE NEGATIVE (NEGATIVE); BARBITURATES, URINE NEGATIVE (NEGATIVE); BENZODIAZEPINE, URINE POSITIVE (NEGATIVE); BUPRENORPHINE, URINE NEGATIVE (NEGATIVE); CANNABINOID, URINE NEGATIVE (NEGATIVE); COCAINE, URINE NEGATIVE (NEGATIVE); ECSTASY, URINE NEGATIVE (NEGATIVE); FENTANYL, URINE NEGATIVE (NEGATIVE); METHADONE, URINE NEGATIVE (NEGATIVE); OPIATES, URINE NEGATIVE (NEGATIVE); OXYCODONE, URINE NEGATIVE (NEGATIVE); PHENCYCLIDINE, URINE NEGATIVE (NEGATIVE)
[2024-03-26 02:13] VITALS: BP 132/86
--- NOTE | 2024-03-27 20:12 | EKG ---
[facility] [address] [facility] [place] [address] Signed Normal sinus rhythm Normal ECG When compared with ECG of 28-FEB-2024 21:37, No significant change was found Confirmed by Billy Stapleton MD ([id number]) on 03/27/2024 8:12:30 PM Electronically Signed By: BILLY STAPLETON MD 03/27/242011 PATIENT NAME: SELVIN YAO Electrocardiogram DATE OF : 63 PHYSICIAN: BILLY STAPLETON MD REPORT #: [id number] REPORT IS CONFIDENTIAL AND NOT TO BE RELEASED WITHOUT AUTHORIZATION
== END 2024-03-26 02:14 | disposition home or self-care (01) ==
LOC: ED 22:41
PROVIDERS: Internal Medicine
DX: R56.9 Unspecified convulsions (principal); I11.0 Hypertensive heart disease with heart failure; I50.9 Heart failure, unspecified; G47.30 Sleep apnea, unspecified; E11.9 Type 2 diabetes mellitus without complications; Z79.82 Long term (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 of aspirin; Z79.84 Long term (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 of oral hypoglycemic drugs; Z79.4 Long term (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 of insulin; Z79.899 Other long term (current) drug therapy; Z88.2 Allergy status to sulfonamides; Z91.040 Latex allergy status; Z91.030 Bee allergy status; Z88.8 Allergy status to other drugs, medicaments and biological substances
CPT/HCPCS: 36415; 70450; 70496; 70498; 71045; 80053; 80307; 81003; 83735; 83880; 84484; 85025; 93005; 93010; 99284-25; G0480; Q9967

== ENCOUNTER 2024-06-02 12:06 | Emergency (ER) | payer MEDICARE, MEDICAID ==
[~2024-06-02] VITALS: Ht 167.6 cm; Wt 86.0 kg
[2024-06-02 17:23] VITALS: BP 151/97
== END 2024-06-02 17:30 | disposition home or self-care (01) ==
LOC: ED 12:06
DX: H53.8 Other visual disturbances (principal); I11.0 Hypertensive heart disease with heart failure; I50.9 Heart failure, unspecified; I25.2 Old myocardial infarction; E11.9 Type 2 diabetes mellitus without complications; G40.919 Epilepsy, unspecified, intractable, without status epilepticus; Z88.2 Allergy status to sulfonamides; Z91.030 Bee allergy status; Z91.040 Latex allergy status; Z79.84 Long term (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 of oral hypoglycemic drugs; Z79.4 Long term (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 of insulin; Z79.82 Long term (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 of aspirin
CPT/HCPCS: 99283

== ENCOUNTER 2024-07-16 17:15 | Emergency (ER) | payer MEDICARE, MEDICAID ==
[~2024-07-16] VITALS: Ht 167.6 cm; Wt 81.2 kg
[2024-07-16] MEDS ORDERED: HYDROCODON-ACE1 EA10 PO (18:27)
[2024-07-16] MEDS ORDERED: ONDANSETRON ODT4 MG PO (18:27)
[2024-07-16 18:34] VITALS: BP 156/108
== END 2024-07-16 18:35 | disposition home or self-care (01) ==
LOC: ED 17:15
DX: J10.1 Influenza due to other identified influenza virus with other respiratory manifestations (principal); I10 Essential (primary) hypertension; E11.9 Type 2 diabetes mellitus without complications; G40.909 Epilepsy, unspecified, not intractable, without status epilepticus; Z88.2 Allergy status to sulfonamides; Z91.030 Bee allergy status; Z88.8 Allergy status to other drugs, medicaments and biological substances; Z79.84 Long term (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 of oral hypoglycemic drugs; Z79.4 Long term (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 of insulin; Z79.82 Long term (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 of aspirin; Z79.899 Other long term (current) drug therapy
CPT/HCPCS: 99283

== ENCOUNTER 2024-08-15 14:03 | Emergency (ER) | payer MEDICARE, MEDICAID ==
[~2024-08-15] VITALS: Ht 167.6 cm; Wt 78.0 kg
[2024-08-15 14:47] LABS: BASOPHILS 0.7 % (0-2); EOSINOPHILS 1.3 % (0-6); HEMATOCRIT 36.6 % (35.0-50.0); HEMOGLOBIN 12.3 g/dL (12.0-18.0); LYMPHOCYTES 28.3 % (24-44); MCH 29.4 (27-36); MCHC 33.7 g/dl (30-36); MCV 87.4 fl (81-99); MONOCYTES 7.1 % (0-12); NEUTROPHILS 62.6 % (39-80); PLATELET COUNT 223 K/uL (140-440); RBC 4.19 M/ul (4.3-5.7); RDW 14.4 (10.5-15.0)
[2024-08-15 15:02] LABS: ALBUMIN 3.7 g/dL (3.4-5.0); ANION GAP 14.7 (7-21); BILIRUBIN, TOTAL 0.3 ng/dL (0.2-1.0); BUN/CREATININE RATIO 20.72 (6.0-28.6); CALCIUM 9.6 mg/dL (8.5-10.1); CREATININE, SERUM 1.11 mg/dL (0.55-1.02); MAGNESIUM 1.4 mg/dL (1.8-2.4); POTASSIUM 3.7 mmol/L (3.5-5.1); PROTEIN, TOTAL 7.4 g/dL (6.4-8.2)
[2024-08-15] MEDS ORDERED: MAGNESIUM OXIDE 400 MG TABLET PO ONE (17:30)
[2024-08-15 17:38] VITALS: BP 123/85
== END 2024-08-15 17:40 | disposition home or self-care (01) ==
LOC: ED 14:03
PROVIDERS: Emergency Medicine
DX: H53.8 Other visual disturbances (principal); E83.42 Hypomagnesemia; E11.319 Type 2 diabetes mellitus with unspecified diabetic retinopathy without macular edema; G40.909 Epilepsy, unspecified, not intractable, without status epilepticus; I25.2 Old myocardial infarction; I11.0 Hypertensive heart disease with heart failure; I50.9 Heart failure, unspecified; G47.30 Sleep apnea, unspecified; Z95.5 Presence of coronary angioplasty implant and graft; Z91.030 Bee allergy status; Z88.2 Allergy status to sulfonamides; Z91.040 Latex allergy status; Z88.8 Allergy status to other drugs, medicaments and biological substances; Z79.82 Long term (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 of aspirin; Z79.85 Long-term (current) use of injectable non-insulin antidiabetic drugs; Z79.4 Long term (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 of insulin; Z79.84 Long term (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 of oral hypoglycemic drugs; Z79.899 Other long term (current) drug therapy
CPT/HCPCS: 36415; 70450; 70496; 70498; 80053; 83735; 84484; 85025; 93005; 93010; 99284-25; Q9967

== ENCOUNTER 2024-09-12 13:11 | Emergency (ER) | payer MEDICARE, MEDICAID ==
[~2024-09-12] VITALS: Ht 167.6 cm; Wt 181.7 kg
[~2024-09-12 13:11] MED LIST changes: +NOVOLOG MI100 UNIT/1 SUB-Q; +SEMGLEE (Y100 UNIT/2 SUB-Q
[2024-09-12] MEDS ORDERED: LORazepam 2 MG/ML VIAL IV ONE (13:45)
[2024-09-12 13:47] LABS: BASOPHILS 0.9 % (0-2); EOSINOPHILS 2.1 % (0-6); HEMATOCRIT 38.4 % (35.0-50.0); LYMPHOCYTES 31.1 % (24-44); MCH 29.9 (27-36); MONOCYTES 6.4 % (0-12); NEUTROPHILS 59.5 % (39-80); PLATELET COUNT 233 K/uL (140-440); RBC 4.36 M/ul (4.3-5.7)
[2024-09-12 14:04] LABS: ALBUMIN 4.4 g/dL (3.4-5.0); ALBUMIN/GLOBULIN RATIO 1.16 (1.1-2.4); ANION GAP 15.2 (7-21); BILIRUBIN, TOTAL 0.4 mg/dL (0.2-1.0); BUN/CREATININE RATIO 19.79 (6.0-28.6); CREATININE, SERUM 0.96 mg/dL (0.55-1.02); POTASSIUM 4.2 mmol/L (3.5-5.1); PROTEIN, TOTAL 8.2 g/dL (6.4-8.2); TSH, 3RD GENERATION 1.007 uIU/mL (0.358-3.740)
[2024-09-12 15:41] VITALS: BP 146/96
--- NOTE | 2024-09-13 21:10 | EKG ---
[facility] [address] [facility] [place] [address] Signed Normal sinus rhythm Minimal voltage criteria for LVH, may be normal variant ( R in aVL ) Borderline ECG When compared with ECG of 15-AUG-2024 15:01, No significant change was found Confirmed by Jake Romero MD () on 09/13/2024 9:09:48 PM Electronically Signed By: JAKE ROMERO MD 09/13/240 PATIENT NAME: SELVIN YAO Electrocardiogram DATE OF : 63 PHYSICIAN: JAKE ROMERO MD REPORT #: [id number] REPORT IS CONFIDENTIAL AND NOT TO BE RELEASED WITHOUT AUTHORIZATION
== END 2024-09-12 15:43 | disposition home or self-care (01) ==
LOC: ED 13:11
PROVIDERS: Emergency Medicine
DX: H53.8 Other visual disturbances (principal); R53.1 Weakness; E11.9 Type 2 diabetes mellitus without complications; I11.0 Hypertensive heart disease with heart failure; I50.9 Heart failure, unspecified; I25.2 Old myocardial infarction; G47.30 Sleep apnea, unspecified; Z79.82 Long term (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 of aspirin; Z79.4 Long term (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 of insulin; Z79.84 Long term (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 of oral hypoglycemic drugs; Z79.899 Other long term (current) drug therapy; Z91.030 Bee allergy status; Z88.2 Allergy status to sulfonamides; Z91.040 Latex allergy status; Z88.1 Allergy status to other antibiotic agents; Z88.8 Allergy status to other drugs, medicaments and biological substances
CPT/HCPCS: 36415; 71045; 80053; 84443; 84484; 85025; 93005; 93010; 96374; 99285-25; J2060